=== PATIENT | male | born 1960 | race Caucasian/White ===

== ENCOUNTER → 2017-11-15 | Outpatient (CLI) | payer BC, OTHER ==
--- NOTE | 2017-11-15 13:22 | CT ---
EXAMINATION TYPE: CT abdomen pelvis wo/w con DATE OF EXAM: 11/15/2017 COMPARISON: CT abdomen and pelvis August 22, 2010 HISTORY: Left lower quadrant pain CT DLP: 3602 mGycm, Automated Exposure Control for Dose Reduction was Utilized. CONTRAST: CT scan of the abdomen and pelvis is performed with oral and without and with IV Contrast, patient in jected with 100 mL of Isovue 300. FINDINGS: LUNG BASES: No significant abnormality is appreciated. LIVER/GB: Liver is diffusely low dense consistent with fatty infiltration on noncontrast images uncha nged from prior. PANCREAS: No significant abnormality is seen. SPLEEN: No significant abnormality is seen. ADRENALS: No significant abnormality is seen. KIDNEYS: Noncontrast images show no renal calculi bilaterally. Postcontrast images show symmetric cor tical medullary uptake and excretion without evidence of concerning solid or cystic renal mass or hyd ronephrosis bilaterally. There is subcentimeter low dense lesion laterally lower pole level right kid david image 46 series 10 that is too small to further characterize per presumed benign. This is noted u nchanged from [address] CT. BOWEL: The oral contrast reaches level of the right colon. There is no suspicious small or large arun l dilatation. There is redundancy of the sigmoid colon. Normal contrast-filled appearing terminal ile um is identified. PROSTATE/SEMINAL VESICLES: No gross abnormality seen. LYMPH NODES: No greater than 1cm abdominal or pelvic lymph nodes are appreciated. OSSEOUS STRUCTURES: There is moderate multilevel spurring and disc space narrowing with vacuum disc p henomenon in the thoracic spine. There is moderate disc space narrowing and vacuum disc phenomenon tre mbosacral junction. Moderate joint space loss in both hips is present. OTHER: There is small to moderate sized fat-containing left inguinal hernia redemonstrated IMPRESSION: 1. No significant new or acute finding is seen to account for patient's clinical symptoms of left low er quadrant pain. No CT evidence for significant diverticulosis or acute diverticulitis.
== END | disposition home or self-care (01) ==
LOC: RADCTMAIN 10:56
PROVIDERS: ATTEND Family Medicine
DX: R10.32 Left lower quadrant pain (principal); E11.9 Type 2 diabetes mellitus without complications
CPT/HCPCS: 74178; Q9967

== ENCOUNTER 2020-02-23 06:25 | Day surgery (SDC) | payer BC, OTHER ==
[~2020-02-23 06:25] MED LIST: ALPRAZolam 0.25 MG TAB PO PRN; ALPRAZolam 0.5 MG TAB PO PRN; ASPIRIN 325 MG TAB PO STA; NITROGLYCERIN SL TABS 0.4 MG TAB SUBLINGUAL PRN; SODIUM CHLORIDE 0.9% 1,000 ML in EMPTY BAG 1 BAG IV ONE
[2020-02-23 07:14] LABS: Glucose,Whole Blood 159 mg/dL (75-99)
[2020-02-23] MEDS ORDERED: LIDOCAINE 1% INJ 10MG/ML (20 ML MDV) ONE (07:15)
[2020-02-23] MEDS ORDERED: VERAPAMIL 2.5 MG/ML 2 ML AMP ONE (07:15)
[2020-02-23] MEDS ORDERED: fentaNYL (PF) 50 MCG/ML 2 ML AMP ONE (07:15)
[2020-02-23] MEDS ORDERED: SODIUM CHLORIDE 0.9% 1,000 ML IV ONE (07:21)
[2020-02-23 07:34] LABS: Basophils # (A) 0.1 k/uL (0-0.2); Basophils % (A) 1 %; Eosinophils # (A) 0.5 k/uL (0-0.7); Eosinophils % (A) 5 %; HCT 41.8 % (39.0-53.0); Lymphocytes # (A) 2.4 k/uL (1.0-4.8); Lymphocytes % (A) 28 %; MCH 30.4 pg (25.0-35.0); MCHC 33.6 g/dL (31.0-37.0); MCV 90.3 fL (80.0-100.0); Mean Platelet Volume 7.3; Monocytes # (A) 0.5 k/uL (0-1.0); Monocytes % (A) 6 %; Neutrophils # (A) 5.2 k/uL (1.3-7.7); Neutrophils % (A) 59 %; Platelet Count 187 k/uL (150-450); RBC 4.62 m/uL (4.30-5.90); RDW 12.9 % (11.5-15.5); WBC 8.8 k/uL (3.8-10.6)
[2020-02-23 07:43] LABS: African American GFR (CKD) >90 (>60 ml/min/1.73 sqM); Anion Gap 7 mmol/L; Blood Urea Nitrogen 12 mg/dL (9-20); Calcium 9.1 mg/dL (8.4-10.2); Carbon Dioxide 27 mmol/L (22-30); Chloride 103 mmol/L (98-107); Glucose 162 mg/dL (74-99); Non-African American GFR(CKD) >90 (>60 ml/min/1.73 sqM); Potassium 4.7 mmol/L (3.5-5.1); Sodium 137 mmol/L (137-145)
[2020-02-23] MEDS ORDERED: fentaNYL (PF) 50 MCG/ML 2 ML AMP IVP ONE (07:55)
[2020-02-23] MEDS ORDERED: MIDAZOLAM 2 MG/2 ML VIAL IVP ONE (08:00)
[2020-02-23] MEDS ORDERED: LIDOCAINE 1% INJ 10MG/ML (20 ML MDV) SQ ONE (08:00)
[2020-02-23] MEDS ORDERED: VERAPAMIL SYRINGE (5 MG/10 ML) INTRAARTER ONE (08:03)
[2020-02-23] MEDS ORDERED: NITROGLYCERIN 1000MCG/10ML SYRINGE INTRACORON ONE (08:13)
[2020-02-23] MEDS ORDERED: CLOPIDOGREL 75 MG TAB ONE (08:18)
[2020-02-23] MEDS ORDERED: BIVALIRUDIN BOLUS 250 MG/50 ML IV ONE (08:19)
[2020-02-23] MEDS ORDERED: CLOPIDOGREL 75 MG TAB PO ONE (08:19)
[2020-02-23] MEDS ORDERED: BIVALIRUDIN 250 MG in SODIUM CHLORIDE 0.9% 50 ML IV ONE (08:20)
[2020-02-23] MEDS ORDERED: IOPAMIDOL-370 100ML BTL INJ ONE ×3 (08:20→08:47)
[2020-02-23] MEDS ORDERED: MAG HYDROX/AL HYDROX/SIMETH 30 ML CUP PO PRN (09:08)
[2020-02-23] MEDS ORDERED: RX INFO: IV CONTRAST WAS GIVEN 1 EACH MISC MISCELLANE PRN (09:08)
[2020-02-23] MEDS ORDERED: ATROPINE SULFATE 0.1 MG/ML 10ML SYRINGE IV PRN (09:08)
[2020-02-23] MEDS ORDERED: ZOLPIDEM 5 MG TAB PO PRN (09:08)
[2020-02-23] MEDS ORDERED: NITROGLYCERIN SL TABS 0.4 MG TAB SUBLINGUAL PRN (09:08)
[2020-02-23] MEDS ORDERED: ALPRAZolam 0.25 MG TAB PO PRN (09:09)
[2020-02-23] MEDS ORDERED: ALBUTEROL NEBULIZED 2.5 MG/3 ML INHALATION PRN (09:09)
[2020-02-23] MEDS ORDERED: ZOLPIDEM 10 MG TAB PO PRN (09:09)
[2020-02-23] MEDS ORDERED: SODIUM CHLORIDE 0.9% 1,000 ML IV SCH (09:15)
--- NOTE | 2020-02-23 10:25 | CC ---
CARDIAC CATHETERIZATION REPORT Mr. Montalvo is a 60-year-old male with history of hypertension, hyperlipidemia, diabetes mellitus, who has been complaining of recurrent episode of chest discomfort, exertion pattern with dyspnea. In view of that, recommendation made regarding cardiac catheterization. The procedures, risks, and complication were discussed with the patient who is in full understanding and agreement. PROCEDURE: Patient was brought to lab systems analyst in a fasting semi-sedated state after receiving fentanyl and Benadryl and achieving moderate conscious sedated state. Using Xylocaine anesthesia and Seldinger technique, a 6-[place]an sheath was introduced in the right radial artery. Selective right and left angiography were performed using 5-[place]an 3.5 bend right and left Pardeep catheter. Multiple views of the coronary artery including hemiaxial views were obtained. Following that, the aortic valve was crossed using the 6- [place] FL 3.5 guiding catheter. Following that, catheter was removed, images were reviewed. FINDINGS: FLUOROSCOPY: There was significant calcification involving the left anterior descending artery as well as the right coronary artery. LEFT MAIN: This is a large-sized vessel, bifurcating into left circumflex, left anterior descending artery. Left main coronary artery has no evidence of high-grade stenosis. LEFT ANTERIOR DESCENDING ARTERY: This is a large-sized vessel, reaching toward the apex with a wraparound apex segment, giving rise to a diagonal branch of moderate caliber proximally. Following the takeoff of the diagonal branch, there is an 80% stenosis. The LAD beyond that has diffuse intimal disease. The diagonal branch has a 60% to 70% plaque in the proximal segment. The rest of the vessel has no high-grade stenosis. LEFT CIRCUMFLEX: This is a nondominant vessel, giving rise to a large obtuse marginal branch. The left circumflex has 20% to 30% plaque in the obtuse marginal branch without any evidence of high-grade stenosis. RIGHT CORONARY ARTERY: This is a dominant vessel, moderate in caliber, bifurcating distally into PDA and posterolateral segment and branches. The right coronary artery in mid segment has a 40% plaque at the bifurcation of the PDA and PLV, has an 80% stenosis. The rest of the vessel has intimal disease without any evidence of high- grade stenosis. LEFT VENTRICULOGRAM: Left ventriculogram was not performed. HEMODYNAMICS: There was no gradient across the aortic valve. The left ventricular end-diastolic pressure was 8-10 mmHg. CONCLUSION: 1. Calcified coronary artery. 2. Significant stenosis involving the mid LAD with diffuse disease in the distal LAD. 3. Significant disease in the distal right coronary artery. 4. Mild disease in the left circumflex and moderate to significant disease in the first diagonal branch. RECOMMENDATION: In view of the finding anatomy, I recommend proceeding with angioplasty and stenting. The procedures, risks, and complication were discussed with the patient, who is in full understanding and agreement. MMODL / IJN: [id number] /
--- NOTE | 2020-02-23 10:40 | PTCA ---
PERCUTANEOUSTRANS CORORONARY ANGIOGRAPHY Mr. Montalvo is a 60-year-old male, with known history of hypertension, hyperlipidemia, diabetes mellitus, and a prior history of smoking, who has been complaining of exertional chest discomfort as well as dyspnea on exertion. He underwent cardiac catheterization, was found to have significant stenosis involving the mid LAD and distal right coronary artery. In view of that, recommendation regarding angioplasty and stenting, the procedures, risks, and complication were discussed with the patient, who is in full understanding and agreement. PROCEDURE: A 6-Khmer FL 3.5 guiding catheter introduced into the system. Following that, a 0.014 balanced medium weight J-wire was advanced across the lesion and positioned in the distal LAD. Following that, a 2.5 x 12 mm Trek balloon was advanced and one inflation 8 atmospheres was done. Following that, the balloon was removed and a 2.75 x 15 mm Xience Yadi stent was deployed, postdilated at 16 atmospheres. Following that, the balloon and the guidewire were withdrawn back in the guiding catheter. Images were obtained and repeated. Those images reveal stable successful stenting. At that point, the guiding catheter, the balloon and the guidewire were removed and a 6-Khmer FR 4 guiding catheter were introduced into the system. After cannulating the right coronary ostium, a 0.014 balanced medium weight J-wire was advanced across the lesion, positioned distally, then a 2.75 x 12 mm Xience Yadi stent was deployed, post dilated at 16 atmospheres. After the last inflation, after appropriate wait, the balloon and the guidewire were withdrawn back in the guiding catheter. Images were obtained and repeated. Those images reveal stable successful stenting. At that point, the guiding catheter, the balloon and guidewire were removed. The sheath was removed. Hemostasis was obtained with deployment of a TR band. There was no immediate complication. Patient is returned to his room in stable condition. Of note, the patient had EKG changes that resulted in the end of the procedure. He received Angiomax per protocol as well as oral loading dose of clopidogrel. RESULTS: 1. Successful stenting of the mid RCA in mid LAD with reduction of stenosis from 80% to 0%. 2. Successful stenting of the distal right coronary artery with reduction of stenosis from 80% to 0%. RECOMMENDATION: Patient will be continued on aspirin, Plavix, beta jessi, lipid, THAO and statin. The importance of dual antiplatelet treatment were discussed with the patient and his family and they are in full understanding and agreement. MMODL / IJN: [id number] /
--- NOTE | 2020-02-23 10:43 | LTR ---
DATE OF SERVICE: 02/23/2020 RE: Frederic Montalvo Dear Dr. Espinoza; I had the pleasure to perform cardiac catheterization and coronary angioplasty and stenting on Mr. Montalvo at [facility] on the February 23, 2020 and a full copy of the procedure note will be forwarded to you. In brief, he was found to have calcified coronary arteries with significant disease involving the mid LAD and distal right coronary artery. He underwent successful stenting of both vessels. I am hopeful that this procedure will stabilize his status. Thank you again for allowing me to participate in this patient's care. Please feel free to call for any questions. Sincerely yours, Rusty Hughes MD MMRENETTAL / KASHN: [id number] /
[2020-02-23 11:48] LABS: Glucose,Whole Blood 207 mg/dL (75-99)
[2020-02-23] MEDS ORDERED: glipiZIDE 5 MG TAB PO SCH (13:28)
[2020-02-23 13:31] VITALS: BMI 37.4
[2020-02-23 16:50] LABS: Glucose,Whole Blood 224 mg/dL (75-99)
[2020-02-23 20:35] LABS: Glucose,Whole Blood 185 mg/dL (75-99)
[2020-02-24 06:24] LABS: Glucose,Whole Blood 146 mg/dL (75-99)
[2020-02-24 07:04] LABS: African American GFR (CKD) >90 (>60 ml/min/1.73 sqM); Anion Gap 7 mmol/L; Blood Urea Nitrogen 11 mg/dL (9-20); Carbon Dioxide 29 mmol/L (22-30); Chloride 101 mmol/L (98-107); Glucose 130 mg/dL (74-99); Non-African American GFR(CKD) >90 (>60 ml/min/1.73 sqM); Potassium 4.7 mmol/L (3.5-5.1); Sodium 137 mmol/L (137-145)
[2020-02-24] MEDS ORDERED: glipiZIDE 5 MG TAB PO SCH ×2 (07:30→13:28)
[2020-02-24] MEDS ORDERED: lisinopriL 10 MG TAB PO SCH (09:00)
[2020-02-24] MEDS ORDERED: ATORVASTATIN 40 MG TAB PO SCH (09:00)
[2020-02-24] MEDS ORDERED: ASPIRIN 81 MG PO SCH (09:00)
[2020-02-24] MEDS ORDERED: CLOPIDOGREL 75 MG TAB PO SCH (09:00)
--- NOTE | 2020-02-24 10:30 | PN ---
PROGRESS NOTE Mr. Montalvo is a 60-year-old male with known history of hypertension, hyperlipidemia, diabetes mellitus, who presented with symptoms of chest discomfort, underwent cardiac catheterization, was found to have significant obstructive disease involving the right coronary artery and left anterior descending artery, underwent stenting of both vessels. He is doing well this morning. He denies any symptoms of chest pain, his breathing has been stable. He denies any dizziness or palpitation. He continued on aspirin once a day, Plavix 75 mg daily, Lipitor 40 mg daily, glipizide 5 mg daily, Trulicity, lisinopril 10 mg daily. PHYSICAL EXAMINATION: Blood pressure 100/50 with a heart rate in the 70s. LUNGS: Clear, regular rate and rhythm, S1, S2. No S3. No rub. ABDOMEN: Soft, nontender, obese. EXTREMITIES: No edema, right radial pulse intact. LAB DATA: Revealed BUN and creatinine 11 and 0.65, potassium 4.7. EKG shows no acute changes. IMPRESSION: 1. Status post stenting of the LAD and the right coronary artery. 2. Hypertension. 3. Hyperlipidemia. 4. Diabetes mellitus. RECOMMENDATION: Patient will be discharged home today and followed as an outpatient. MMODL / IJN: [id number] /
[2020-02-25] MEDS ORDERED: Dulaglutide [Trulicity] 1.5 MG SQ SCH (09:00)
[2020-02-26 07:49] VITALS: BP 148/70; PULSE 80; RESP 16; TEMP 98.4
== END 2020-02-24 10:48 | disposition home or self-care (01) ==
LOC: CATHCVL 06:25 → 3SCARD 09:21 → CATHCVL 02-24 10:48
PROVIDERS: ATTEND Internal Medicine Interventional Cardiology
DX: I25.110 Atherosclerotic heart disease of native coronary artery with unstable angina pectoris (principal); Z82.49 Family history of ischemic heart disease and other diseases of the circulatory system; I10 Essential (primary) hypertension; E78.00 Pure hypercholesterolemia, unspecified; E11.9 Type 2 diabetes mellitus without complications; E78.5 Hyperlipidemia, unspecified; Z79.82 Long term (current) use of aspirin; Z79.02 Long term (current) use of antithrombotics/antiplatelets; Z79.84 Long term (current) use of oral hypoglycemic drugs; Z79.899 Other long term (current) drug therapy
CPT/HCPCS: 93458; 85347; 80048 ×2; 85025; C9600; C1769 ×3; C1887 ×2; C1725; C1874; C1894; J2250; J2001; J3010; J0583; Q9967

== ENCOUNTER 2020-04-26 23:59 | Observation (INO) | payer BC ==
[2020-04-27] MEDS ORDERED: ASPIRIN 81 MG PO STA (00:09)
--- NOTE | 2020-04-27 00:10 | ED ---
Chest Pain HPI - General Chief Complaint: Chest Pain Stated Complaint: sob, chest pain Time Seen by Provider: 04/27/20 00:09 Source: patient Mode of arrival: ambulatory Limitations: no limitations - History of Present Illness Initial Comments: Frederic is in obese 60-year-old male with a history of diabetes and coronary artery disease status post stenting in February of this year. Patient presents the ER today for evaluation of chest pain. 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 He states that anytime he is working he feels some pain in his chest short of breath and fatigue. He states that this is been persistent for 3 or 4 days however tonight he was at work he developed shortness of breath, diaphoresis and lightheadedness. His coworkers saw him he became concerned for his health and requested that he come to the ER for further evaluation. Patient reports he has been compliant with his home medications including his aspirin and Plavix. - Related Data Home Medications Medication Instructions Recorded Confirmed ALPRAZolam [Xanax] 0.25 mg PO DIRECTED PRN 02/22/20 02/23/20 Albuterol Inhaler [Ventolin Hfa 2 puff INHALATION RT-QID PRN 02/22/20 02/23/20 Inhaler] Dulaglutide [Trulicity] 1.5 mg SQ TH 02/22/20 02/23/20 Lisinopril [Prinivil] 10 mg PO DAILY 02/22/20 02/23/20 Zolpidem [Ambien] 10 mg PO HS PRN 02/22/20 02/23/20 glipiZIDE [Glucotrol] 5 mg PO DAILY 02/22/20 02/23/20 metFORMIN HCL [Glucophage Xr] 1,000 mg PO DAILY 02/22/20 02/23/20 Aspirin 81 mg PO ONCE 02/23/20 02/23/20 Previous Rx's Medication Instructions Recorded Clopidogrel [Plavix] 75 mg PO DAILY #90 tab 02/24/20 Nitroglycerin Sl Tabs [Nitrostat] 0.4 mg SUBLINGUAL Q5M PRN #25 tab 02/24/20 Rosuvastatin Calcium 20 mg PO DAILY #0 02/24/20 Allergies Allergy/AdvReac Type Severity Reaction Status Date / Time No Known Allergies Allergy Verified 04/27/20 00:06 Review of Systems ROS Statement: Those systems with pertinent positive or pertinent negative responses have been documented in the HPI. ROS Other: All systems not noted in ROS Statement are negative. EKG Findings - EKG Comments: EKG Findings:: EKG was obtained due to complaint of chest pain, EKG was obtained at 12:12 AM, rate is 85, rhythm is sinus is a normal axis, there are normal intervals, DE 154, QRS 78, QTC 404 there are no acute ST elevations or depressions there is no evidence of acute ischemia or infarction Past Medical History Past Medical History: Asthma, Cancer, Diabetes Mellitus, GERD/Reflux, Hyperlipidemia, Hypertension, Osteoarthritis (OA) Additional Past Medical History / Comment(s): Hx Skin Cancer on shoulder removed a few yrs ago, History of Any Multi-Drug Resistant Organisms: None Reported Past Surgical History: Heart Catheterization With Stent, Orthopedic Surgery Additional Past Surgical History / Comment(s): Sleep apnea surgery, shoulder surgery. 1 stent to LAD and 1 stent to RCA on 02/23/2020, Past Anesthesia/Blood Transfusion Reactions: No Reported Reaction Date of Last Stent Placement:: 02/23/2020 Past Psychological History: Anxiety Smoking Status: Former smoker Past Alcohol Use History: Daily Past Drug Use History: None Reported - Past Family History Mother Family Medical History: No Reported History General Exam - General Exam Comments Initial Comments: Physical Exam GENERAL: Patient is well-developed and well-nourished. Patient is nontoxic and well-hydrated and is in no distress. Obese HENT: Normocephalic, Atraumatic. EYES: PERRL, EOMI PULMONARY: Unlabored respirations. No audible rales rhonchi or wheezing was noted. CARDIOVASCULAR: There is a regular rate and rhythm without any murmurs gallops or rubs. ABDOMEN: Soft and nontender with normal bowel sounds. SKIN: Skin is clear with no lesions or rashes and otherwise unremarkable. : Deferred NEUROLOGIC: Patient is alert and oriented x3. Moving all extremities spontaneously MUSCULOSKELETAL: Normal extremities with adequate strength and full range of motion. No lower extremity swelling or edema. No calf tenderness. PSYCHIATRIC: Normal psychiatric evaluation. Limitations: no limitations Course Vital Signs 04/27/20 04/27/20 00:01 01:46 Temperature 99.2 F Pulse Rate 87 80 Respiratory 16 16 Rate Blood Pressure 148/88 153/83 O2 Sat by Pulse 96 98 Oximetry Chest Pain MDM - MDM The patient was seen and evaluated, history is obtained from the patient Patient seems to be having stable angina every day at work however tonight was much worse he became diaphoretic Patient's initial EKG was nonischemic initial set of labs was unremarkable however given the patient's history he is high risk for acute coronary syndrome and will be admitted to the hospital for serial troponins and evaluation by cardiology Disposition Clinical Impression: Chest pain Disposition: ADMITTED IP TO THIS HOSP Condition: Stable Is patient prescribed a controlled substance at d/c from ED?: No
[2020-04-27 00:30] LABS: Basophils # (A) 0.1 k/uL (0-0.2); Basophils % (A) 1 %; Eosinophils # (A) 0.3 k/uL (0-0.7); Eosinophils % (A) 2 %; HCT 40.3 % (39.0-53.0); HGB 13.6 gm/dL (13.0-17.5); Lymphocytes # (A) 2.6 k/uL (1.0-4.8); Lymphocytes % (A) 24 %; MCHC 33.6 g/dL (31.0-37.0); MCV 92.1 fL (80.0-100.0); Mean Platelet Volume 7.1; Monocytes # (A) 0.6 k/uL (0-1.0); Monocytes % (A) 6 %; Neutrophils % (A) 66 %; Platelet Count 221 k/uL (150-450); RBC 4.38 m/uL (4.30-5.90); RDW 13.2 % (11.5-15.5); WBC 10.7 k/uL (3.8-10.6)
[2020-04-27 00:44] LABS: ALT 21 U/L (4-49); AST 20 U/L (17-59); African American GFR (CKD) >90 (>60 ml/min/1.73 sqM); Albumin 4.1 g/dL (3.5-5.0); Alkaline Phosphatase 49 U/L (38-126); Anion Gap 8 mmol/L; Blood Urea Nitrogen 17 mg/dL (9-20); Calcium 9.5 mg/dL (8.4-10.2); Carbon Dioxide 26 mmol/L (22-30); Chloride 102 mmol/L (98-107); Glucose 126 mg/dL (74-99); Magnesium 1.9 mg/dL (1.6-2.3); Non-African American GFR(CKD) >90 (>60 ml/min/1.73 sqM); Potassium 4.2 mmol/L (3.5-5.1); Sodium 136 mmol/L (137-145); Total Bilirubin 0.4 mg/dL (0.2-1.3); Total Protein 6.5 g/dL (6.3-8.2)
[2020-04-27 00:47] LABS: Partial Thromboplastin Time 22.2 sec (22.0-30.0); Prothrombin Time 9.9 sec (9.0-12.0)
--- NOTE | 2020-04-27 00:53 | XR ---
EXAMINATION TYPE: XR chest 2V DATE OF EXAM: 04/27/2020 COMPARISON: NONE HISTORY: Difficulty breathing TECHNIQUE: 2 views FINDINGS: Heart is normal. Lungs are clear of infiltrate. There is no heart failure. There are no hil ar masses. There are chest leads. Bony thorax is intact. IMPRESSION: No active cardiopulmonary disease. Normal heart.
[2020-04-27] MEDS ORDERED: NITROGLYCERIN SL TABS 0.4 MG TAB SUBLINGUAL PRN ×2 (01:24→13:44)
[2020-04-27] MEDS ORDERED: ALBUTEROL NEBULIZED 2.5 MG/3 ML INHALATION PRN (01:33)
[2020-04-27 06:31] LABS: Glucose,Whole Blood 93 mg/dL (75-99)
[2020-04-27] MEDS ORDERED: metFORMIN 500 MG TAB PO SCH (09:00)
[2020-04-27] MEDS ORDERED: glipiZIDE 5 MG TAB PO SCH (09:00)
--- NOTE | 2020-04-27 09:01 | P.HPIM ---
History of Present Illness This is a pleasant 60 years old male with coronary artery disease who was admitted couple months ago and underwent an and coronary angiography with stenting to both mid LAD and right coronary artery . Other chronic medical problems including hypertension, hyperlipidemia, GERD, diabetes mellitus, asthma. Presents because of chest pain, he had this chest pain for the last 3-4 days and he states is similar to the chest pain when he had the stent placed for him about 2 months ago, so the left side, constant, associated with sweats about 7-8/10 in severity, felt like pressure with some exertional dyspnea He denies a smoking, drinks about 2 liquor cups every day, no illicit drugs Denies depression or suicidal ideation He has mild leukocytosis of 10.7, troponin 3 are negative EKG showing normal sinus rhythm at [address]-T changes, chest x- ray: No acute process. Review of Systems CONSTITUTIONAL: No fever, no malaise, no fatigue. HEENT: No recent visual problems or hearing problems. Denied any sore throat. CARDIOVASCULAR: No orthopnea, PND, no palpitations, no syncope. PULMONARY: No shortness of breath, no cough, no hemoptysis. GASTROINTESTINAL: No diarrhea, no nausea, no vomiting, no abdominal pain. Normoactive bowel sounds. NEUROLOGICAL: No headaches, no weakness, no numbness. HEMATOLOGICAL: Denies any bleeding or petechiae. GENITOURINARY: Denies any burning micturition, frequency, or urgency. MUSCULOSKELETAL/RHEUMATOLOGICAL: Denies any joint pain, swelling, or any muscle pain. ENDOCRINE: Denies any polyuria or polydipsia. Past Medical History Past Medical History: Asthma, Cancer, Diabetes Mellitus, GERD/Reflux, Hyperlipidemia, Hypertension, Osteoarthritis (OA) Additional Past Medical History / Comment(s): Hx Skin Cancer on shoulder removed a few yrs ago, History of Any Multi-Drug Resistant Organisms: None Reported Past Surgical History: Heart Catheterization With Stent, Orthopedic Surgery Additional Past Surgical History / Comment(s): Sleep apnea surgery, shoulder surgery. 1 stent to LAD and 1 stent to RCA on 02/23/2020, Past Anesthesia/Blood Transfusion Reactions: No Reported Reaction Date of Last Stent Placement:: 02/23/2020 Past Psychological History: Anxiety Smoking Status: Former smoker Past Alcohol Use History: Daily Past Drug Use History: None Reported - Past Family History Mother Family Medical History: No Reported History Medications and Allergies Home Medications Medication Instructions Recorded Confirmed Type ALPRAZolam [Xanax] 0.25 mg PO DIRECTED PRN 02/22/20 02/23/20 History Albuterol Inhaler [Ventolin Hfa 2 puff INHALATION RT-QID PRN 02/22/20 02/23/20 History Inhaler] Dulaglutide [Trulicity] 1.5 mg SQ TH 02/22/20 02/23/20 History Lisinopril [Prinivil] 10 mg PO DAILY 02/22/20 02/23/20 History Zolpidem [Ambien] 10 mg PO HS PRN 02/22/20 02/23/20 History glipiZIDE [Glucotrol] 5 mg PO DAILY 02/22/20 02/23/20 History metFORMIN HCL [Glucophage Xr] 1,000 mg PO DAILY 02/22/20 02/23/20 History Aspirin 81 mg PO ONCE 02/23/20 02/23/20 History Clopidogrel [Plavix] 75 mg PO DAILY #90 tab 02/24/20 Rx Nitroglycerin Sl Tabs [Nitrostat] 0.4 mg SUBLINGUAL Q5M PRN #25 tab 02/24/20 Rx Rosuvastatin Calcium 20 mg PO DAILY #0 02/24/20 02/23/20 Rx Allergies Allergy/AdvReac Type Severity Reaction Status Date / Time No Known Allergies Allergy Verified 04/27/20 08:57 Physical Exam Vitals: Vital Signs Temp Pulse Pulse Resp BP BP Pulse Ox 04/27/20 02:10 98.3 F 96 18 130/82 96 04/27/20 01:46 80 16 153/83 98 04/27/20 00:01 99.2 F 87 16 148/88 96 Intake and Output 04/26/20 04/27/20 04/27/20 22:59 06:59 14:59 Intake Total 0 Balance 0 Intake: Oral 0 Other: Voiding Method Toilet # Voids 2 Weight 117.934 kg GENERAL: The patient is alert and oriented x3, not in any acute distress. Well developed, well nourished. HEENT: Pupils are round and equally reacting to light. EOMI. No scleral icterus. No conjunctival pallor. Normocephalic, atraumatic. No pharyngeal erythema. No thyromegaly. CARDIOVASCULAR: S1 and S2 present. No murmurs, rubs, or gallops. PULMONARY: Chest is clear to auscultation, no wheezing or crackles. ABDOMEN: Soft, nontender, nondistended, normoactive bowel sounds. No palpable organomegaly. MUSCULOSKELETAL: No joint swelling or deformity. EXTREMITIES: No cyanosis, clubbing, or pedal edema. NEUROLOGICAL: Gross neurological examination did not reveal any focal deficits. SKIN: No rashes. No petechiae Results CBC & Chem 7: 04/27/20 00:14 04/27/20 00:14 Labs: Abnormal Lab Results - Last 24 Hours (Table) 04/27/20 04/27/20 Range/Units 00:14 00:14 WBC 10.7 H (3.8-10.6) k/uL Sodium 136 L (137-145) mmol/L Glucose 126 H (74-99) mg/dL Assessment and Plan Assessment: Chest pain, with recent stenting of the LAD and RCA Diabetes mellitus Hypertension Hyperlipidemia Osteoarthritis Obesity with BMI of 38 Plan: This is a pleasant 60 years old male who presents with chest pain, no history of troponin, cardiology consult. Continue with aspirin and Plavix and statin. Labs and medication were reviewed.. Continue same treatment. Continue with symptomatic treatment. Resume home medication. Monitor lytes and vitals. DVT and GI prophylaxis. Further recommendations of the clinical course of the patient DVT prophylaxis: Subcutaneous heparin GI Prophylaxis: Pepcid Prognosis is guarded
[2020-04-27] MEDS ORDERED: ALPRAZolam 0.25 MG TAB PO PRN (09:18)
[2020-04-27] MEDS ORDERED: ALPRAZolam 0.5 MG TAB PO PRN (09:18)
[2020-04-27] MEDS ORDERED: SODIUM CHLORIDE 0.9% 1,000 ML in EMPTY BAG 1 BAG IV ONE (09:18)
[2020-04-27] MEDS: CLOPIDOGREL 75 MG TAB PO SCH (09:26)
[2020-04-27] MEDS: ATORVASTATIN 40 MG TAB PO SCH (09:26)
[2020-04-27] MEDS: lisinopriL 10 MG TAB PO SCH (09:26)
--- NOTE | 2020-04-27 09:34 | P.CRDCN ---
History of Present Illness History of present illness: HISTORY OF PRESENTING ILLNESS This is a pleasant 60-year-old female past medical history significant for coronary artery disease s/p PCI to the LAD and RCA in February 2020, diabetes m ellitus, hypertension and dyslipidemia. He follows in the office with Dr. Hughes. We have been asked to see in consultation for chest pain. He states for the previous 3 days he has been experiencing a discomfort described as a pressure sensation in the left precordial region. It is associated with diaphoresis and shortness of breath. His pain has been rather constant for the previous 3 days but does have episodes of exacerbation specifically when he exerts himself. He also has exacerbations when he moves his left arm and takes a deep breath at times. More specifically he becomes dyspneic with mild exertion or activity. He states these symptoms are similar to how he felt prior to his recent stent placement. After his stent placement in his chest discomfort and shortness of breath did seem to improve somewhat however his level of energy did not. He recently went back to work 3 days ago and he's noticed symptoms returning associated with work. He is currently chest pain- free however he got up to use the restroom and states he did become dyspneic. He states he has been compliant with his dual antiplatelet therapy. Cardiac catheterization from February 2020 reviewed, LAD with an 80% stenosis following the takeoff of the diagonal branch with diffuse intimal disease thereafter, diagonal branch with a 60-70% plaque in the proximal segment, circumflex with a 20-30% plaque in the OM branch, RCA with a 40% plaque in the midsegment at the bifurcation of the PDA and PLV and an 80% stenosis thereafter. After his PCI he underwent a low level treadmill exercise stress test where he achieved 81% of his maximum target heart rate. At 81% he had no ischemic EKG abnormalities or symptoms of unstable angina. Most recent echocardiogram obtained prior to PCI February 16 revealed preserved LV systolic function with ejection fraction 55%, mild concentric hypertrophy and no valvular abnormalities. DIAGNOSTICS EKG reveals sinus mechanism with no acute ST or T wave abnormalities noted. Chest xray negative for an acute cardiopulmonary process. Laboratory reviewed, WBC 10.7, hemoglobin 13.6, platelets 221, sodium 136, potassium 4.2, creatinine 0.74, magnesium 1.9, cardiac enzymes negative 3 and NT proBNP 45. Current cardiac medications include aspirin 81 mg daily, Plavix 75 mg daily, lisinopril 10 mg daily and rosuvastatin 5 mg daily. REVIEW OF SYSTEMS At the time of my exam: CONSTITUTIONAL: Denies fever or chills. CARDIOVASCULAR: Denies chest pain, shortness of breath, orthopnea, PND or palpitations. RESPIRATORY: Denies cough. GASTROINTESTINAL: Denies abdominal pain, diarrhea, constipation, nausea or vomiting. MUSCULOSKELETAL: Denies myalgias. NEUROLOGIC: Denies numbness, tingling or weakness. ENDOCRINE: Denies fatigue, weight change, polydipsia or polyurina. GENITOURINARY: Denies burning, hematuria or urgency with micturation. HEMATOLOGIC: Denies history of anemia or bleeding. PHYSICAL EXAMINATION Blood pressure 136/88 heart rate 82 afebrile and maintaining oxygen saturation on room air. CONSTITUTIONAL: No apparent distress. Obese. HEENT: Head is normocephalic. Pupils are equal, round. Sclerae anicteric. Mucous membranes of the mouth are moist. No JVD. No carotid bruit. CHEST EXAMINATION: Lungs are clear to auscultation. No chest wall tenderness is noted on palpation or with deep breathing. HEART EXAMINATION: Regular rate and rhythm. S1, S2 heard. No murmurs, gallops or rub. ABDOMEN: Soft, nontender. Positive bowel sounds. EXTREMITIES: 2+ peripheral pulses, no lower extremity edema and no calf tenderness. NEUROLOGIC EXAMINATION: Patient is awake, alert and oriented x3. ASSESSMENT Unstable angina Coronary artery disease status post recent PCI maintained on dual antiplatelet therapy Hypertension Dyslipidemia Diabetes mellitus Obesity, BMI 38 PLAN Recommend proceeding with cardiac catheterization to assess for patency of the previously placed stents. I have discussed the risks, benefits and alternative therapies for the above-mentioned procedure and for both sedation/analgesia as well as necessary blood product administration, if indicated, as they pertain to this patient. The patient has indicated understanding and acceptance of the risks and procedures discussed. Questions have been answered appropriately and he is agreeable to move forward with the above stated procedure. Further recommendations to follow based upon clinical course. Thank you kindly for this consultation. Nurse Practitioner note has been reviewed, I agree with a documented findings and plan of care. Patient was seen and examined. Past Medical History Past Medical History: Asthma, Cancer, Diabetes Mellitus, GERD/Reflux, Hyperlipidemia, Hypertension, Osteoarthritis (OA) Additional Past Medical History / Comment(s): Hx Skin Cancer on shoulder removed a few yrs ago, History of Any Multi-Drug Resistant Organisms: None Reported Past Surgical History: Heart Catheterization With Stent, Orthopedic Surgery Additional Past Surgical History / Comment(s): Sleep apnea surgery, shoulder surgery. 1 stent to LAD and 1 stent to RCA on 02/23/2020, Past Anesthesia/Blood Transfusion Reactions: No Reported Reaction Date of Last Stent Placement:: 02/23/2020 Past Psychological History: Anxiety Smoking Status: Former smoker Past Alcohol Use History: Daily Past Drug Use History: None Reported - Past Family History Mother Family Medical History: No Reported History Medications and Allergies Home Medications Medication Instructions Recorded Confirmed Type ALPRAZolam [Xanax] 0.25 mg PO BID PRN 02/22/20 04/27/20 History Albuterol Inhaler [Ventolin Hfa 2 puff INHALATION RT-QID PRN 02/22/20 04/27/20 History Inhaler] Dulaglutide [Trulicity] 1.5 mg SQ TH 02/22/20 04/27/20 History Lisinopril [Prinivil] 10 mg PO DAILY 02/22/20 04/27/20 History Zolpidem [Ambien] 10 mg PO HS PRN 02/22/20 04/27/20 History Aspirin 81 mg PO DAILY 02/23/20 04/27/20 History Clopidogrel [Plavix] 75 mg PO DAILY #90 tab 02/24/20 04/27/20 Rx Rosuvastatin Calcium [Crestor] 5 mg PO DAILY 04/27/20 04/27/20 History glipiZIDE XL [Glucotrol Xl] 5 mg PO DAILY 04/27/20 04/27/20 History metFORMIN HCL [Glucophage] 500 mg PO BID 04/27/20 04/27/20 History Allergies Allergy/AdvReac Type Severity Reaction Status Date / Time No Known Allergies Allergy Verified 04/27/20 08:57 Physical Exam Vitals: Vital Signs Temp Pulse Pulse Resp BP BP Pulse Ox 04/27/20 07:48 97.5 F L 82 16 136/88 98 04/27/20 02:10 98.3 F 96 18 130/82 96 04/27/20 01:46 80 16 153/83 98 04/27/20 00:01 99.2 F 87 16 148/88 96 Intake and Output 04/26/20 04/27/20 04/27/20 22:59 06:59 14:59 Intake Total 0 Balance 0 Intake: Oral 0 Other: Voiding Method Toilet Toilet # Voids 2 Weight 117.934 kg Results 04/27/20 00:14 04/27/20 00:14 Cardiac Enzymes 04/27/20 04/27/20 04/27/20 Range/Units 00:14 00:14 03:20 AST 20 (17-59) U/L Troponin I <0.012 <0.012 (0.000-0.034) ng/mL Coagulation 04/27/20 Range/Units 00:14 PT 9.9 (9.0-12.0) sec APTT 22.2 (22.0-30.0) sec CBC 04/27/20 Range/Units 00:14 WBC 10.7 H (3.8-10.6) k/uL RBC 4.38 (4.30-5.90) m/uL Hgb 13.6 (13.0-17.5) gm/dL Hct 40.3 (39.0-53.0) % Plt Count 221 (150-450) k/uL Comprehensive Metabolic Panel 04/27/20 Range/Units 00:14 Sodium 136 L (137-145) mmol/L Potassium 4.2 (3.5-5.1) mmol/L Chloride 102 (98-107) mmol/L Carbon Dioxide 26 (22-30) mmol/L BUN 17 (9-20) mg/dL Creatinine 0.74 (0.66-1.25) mg/dL Glucose 126 H (74-99) mg/dL Calcium 9.5 (8.4-10.2) mg/dL AST 20 (17-59) U/L ALT 21 (4-49) U/L Alkaline Phosphatase 49 (38-126) U/L Total Protein 6.5 (6.3-8.2) g/dL Albumin 4.1 (3.5-5.0) g/dL Current Medications Generic Name Dose Route Start Last Admin Trade Name Freq PRN Reason Stop Dose Admin Albuterol Sulfate 2.5 mg 04/27/20 01:33 Ventolin Nebulized INHALATION RT-QID PRN Shortness Of Breath Aspirin 325 mg 04/28/20 09:00 Aspirin PO DAILY [facility] Atorvastatin Calcium 40 mg 04/27/20 09:00 Lipitor PO DAILY [facility] Clopidogrel Bisulfate 75 mg 04/27/20 09:00 Plavix PO DAILY [facility] Glipizide 5 mg 04/27/20 09:00 Glucotrol PO DAILY [facility] Lisinopril 10 mg 04/27/20 09:00 Zestril PO DAILY [facility] Metformin HCl 1,000 mg 04/27/20 09:00 Glucophage PO DAILY [facility] Nitroglycerin 0.4 mg 04/27/20 01:24 Nitrostat SUBLINGUAL Q5M PRN Chest Pain Intake and Output 04/26/20 04/27/20 04/27/20 22:59 06:59 14:59 Intake Total 0 Balance 0 Intake: Oral 0 Other: Voiding Method Toilet Toilet # Voids 2 Weight 117.934 kg 04/27/20 00:14 04/27/20 00:14
[2020-04-27 10:54] LABS: Glucose,Whole Blood 112 mg/dL (75-99)
[2020-04-27 12:50] LABS: Cholesterol 136 mg/dL (<200); HDL Cholesterol 40 mg/dL (40-60); LDL Cholesterol,Calculated 68 mg/dL (0-99); Triglycerides 141 mg/dL (<150)
[2020-04-27] MEDS ORDERED: IV FLUID CONTINUATION 1,000 ML IV ONE (12:50)
[2020-04-27] MEDS ORDERED: fentaNYL (PF) 50 MCG/ML 2 ML AMP ONE (12:56)
[2020-04-27] MEDS ORDERED: LIDOCAINE 1% INJ 10MG/ML (20 ML MDV) ONE (12:56)
[2020-04-27] MEDS ORDERED: VERAPAMIL 2.5 MG/ML 2 ML AMP ONE (12:56)
[2020-04-27] MEDS ORDERED: fentaNYL (PF) 50 MCG/ML 2 ML AMP IVP ONE (13:00)
--- NOTE | 2020-04-27 13:01 | ECHOF ---
Referral Reason: MEASUREMENTS -------- HEIGHT: 175.3 cm WEIGHT: 117.9 kg BP: 136/88 RVIDd: 3.2 cm (< 3.3) IVSd: 1.2 cm (0.6 - 1.1) LVIDd: 4.2 cm (3.9 - 5.3) LVPWd: 1.2 cm (0.6 - 1.1) IVSs: 1.6 cm LVIDs: 2.9 cm LVPWs: 1.7 cm LA Diam: 3.5 cm (2.7 - 3.8) LAESV Index (A-L): 16.94 ml/m Ao Diam: 3.6 cm (2.0 - 3.7) AV Cusp: 2.0 cm (1.5 - 2.6) MV EXCURSION: 19.089 mm (> 18.000) MV EF SLOPE: 160 mm/s (70 - 150) EPSS: 0.6 cm MV E Ramses: 0.79 m/s MV DecT: 231 ms MV A Ramses: 0.87 m/s MV E/A Ratio: 0.91 FINDINGS -------- Sinus rhythm. This was a technically adequate study. The left ventricular size is normal. Left ventricular wall thickness is normal. Overall left vent ricular systolic function is normal with, an EF between 60 - 65 %. The right ventricle is normal in size. Normal LA size by volume 22+/-6 ml/m2. The right atrium is normal in size. Interatrial and interventricular septum intact. The aortic valve is trileaflet and appears structurally normal. There is trace mitral regurgitation. The tricuspid valve appears structurally normal. There is no pulmonic regurgitation present. The aortic root size is normal. Normal inferior vena cava with normal inspiratory collapse consistent with estimated right atrial pre ssure of 5 mmHg. There is no pericardial effusion. CONCLUSIONS -------- 1. The left ventricular size is normal. 2. Left ventricular wall thickness is normal. 3. Overall left ventricular systolic function is normal with, an EF between 60 - 65 %. 4. There is trace mitral regurgitation. 5. There is no pericardial effusion. GAS WORKER: Michelle Rubio [facility]
[2020-04-27] MEDS ORDERED: LIDOCAINE 1% INJ 10MG/ML (20 ML MDV) SQ ONE (13:02)
[2020-04-27] MEDS ORDERED: VERAPAMIL SYRINGE (5 MG/10 ML) INTRAARTER ONE (13:05)
[2020-04-27] MEDS ORDERED: HEPARIN SODIUM 1,000 UN/ML (10ML VL) ONE (13:11)
[2020-04-27] MEDS: HEPARIN SODIUM 1,000 UN/ML (10ML VL) IV ONE ×2 (13:12→13:19)
[2020-04-27] MEDS ORDERED: MIDAZOLAM 2 MG/2 ML VIAL IVP ONE (13:14)
[2020-04-27] MEDS ORDERED: NITROGLYCERIN 1000MCG/10ML SYRINGE INTRAARTER ONE (13:28)
[2020-04-27] MEDS ORDERED: IOPAMIDOL-370 125ML BTL INJ ONE (13:35)
[2020-04-27] MEDS ORDERED: RX INFO: IV CONTRAST WAS GIVEN 1 EACH MISC MISCELLANE PRN (13:44)
[2020-04-27] MEDS ORDERED: ZOLPIDEM 5 MG TAB PO PRN (13:44)
[2020-04-27] MEDS ORDERED: ATROPINE SULFATE 0.1 MG/ML 10ML SYRINGE IV PRN (13:44)
[2020-04-27] MEDS ORDERED: MAG HYDROX/AL HYDROX/SIMETH 30 ML CUP PO PRN (13:44)
[2020-04-27] MEDS ORDERED: SODIUM CHLORIDE 0.9% 1,000 ML IV SCH (13:45)
[2020-04-27 14:46] VITALS: BMI 38.4
--- NOTE | 2020-04-27 16:47 | PTCA ---
PERCUTANEOUSTRANS CORORONARY ANGIOGRAPHY Mr. Montalvo is a 60-year-old male who presented with symptoms of progressive angina pectoris, underwent cardiac catheterization, was found to have moderate to significant disease in the mid right coronary artery. In view of that, recommendation regarding angioplasty and stenting, the procedures, risks, and complication were discussed with the patient who is in full understanding and agreement. PROCEDURE: A 6-Macedonian FR4 guiding catheter introduced into the system after cannulating the right coronary ostium, a 0.014 balanced medium weight J-wire was advanced across the lesion, positioned distal RCA, subsequently 3.25 x 18 mm Xience Yadi stent was deployed, postdilated to 16 atmospheres. After the last inflation, after appropriate wait, the balloon and the guidewire were withdrawn back in the guiding catheter. Images were obtained and repeated. Those images reveal stable successful stenting. At that point, the guiding catheter, the balloon and the guidewire were removed. The left ventricular end-diastolic pressure was calculated. Following that, catheter and sheath were removed. Hemostasis was obtained with deployment of a TR band. There was no immediate complication. Patient was returned to his room in stable condition. Of note, the patient had no chest discomfort or EKG changes with the inflation. He received another 5000 units of intravenous heparin. His HCT was monitored and he was continued on clopidogrel. RESULTS: Successful stenting of the mid RCA with reduction of stenosis from 60%-70% percent to 0%. RECOMMENDATION: Patient will be continued on aspirin, Plavix and statin. The importance of dual antiplatelet platelet treatment were discussed with the patient and his family who were under fully understanding and agreement. Duration of sedation is 35 minutes. MMODL / IJN: [id number] /
--- NOTE | 2020-04-27 16:47 | CC ---
CARDIAC CATHETERIZATION REPORT Mr. Montalvo is a 60-year-old male with known history of coronary artery disease, history of hypertension, hyperlipidemia, diabetes mellitus, who underwent stenting of the LAD and the right coronary artery in early February of this year. He presented to the hospital with symptoms of exertional chest discomfort and dyspnea on exertion, increasing in frequency and intensity. In view of that, recommendation made regarding cardiac catheterization. The procedures, risks, and complication were discussed with the patient who is in full understanding and agreement. 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 Using Xylocaine anesthesia and Seldinger technique, a 6-Ivorian sheath was introduced in the right radial artery. Selective right and left coronary angiography performed using 5-Ivorian 3.5 bend right and left Pardeep catheter. Multiple views of the coronary artery including hemiaxial views were obtained. Following that, angioplasty and stenting. Following that, a 5-Ivorian tight pigtail catheter introduced into the left ventricle and left ventricular end-diastolic pressure was calculated. At the end the procedure catheter and sheath were removed. Hemostasis was obtained with deployment of a TR band. There was no immediate complication. Patient is returned to his room in stable condition. Of note, the patient received 5000 units of intravenous heparin as well as intra- arterial verapamil. FINDINGS: LEFT MAIN: This is a large-sized vessel, bifurcating into left circumflex, left anterior descending artery. Left main coronary artery has no evidence of high-grade stenosis. LEFT ANTERIOR DESCENDING ARTERY: This is a large-sized vessel, tapers down distal third. The stented segment mid vessel is patent with no evidence of in-stent restenosis. There is 20% to 30% plaque proximally, distal to the stent and in the mid and distal segment. There is diffuse intimal disease. The vessel gives rise to a diagonal branch of moderate caliber that has intimal disease. LEFT CIRCUMFLEX: This is a nondominant vessel, large in caliber, giving rise to a large obtuse marginal branch. The left circumflex has a 20% to 30% plaque without any evidence of high-grade stenosis. RIGHT CORONARY ARTERY: This is a large dominant vessel, bifurcating into PDA and posterolateral segment and branches. The stented segment in the distal right coronary artery is patent. The mid RCA has a tubular 60% plaque. The proximal RCA has a 20% to 30% plaque. The rest of the vessel has no high-grade stenosis. LEFT VENTRICULOGRAM: Left ventriculogram was not performed. HEMODYNAMICS: There was no gradient across the aortic valve. The left ventricular end- diastolic pressure was 14-18 mmHg. CONCLUSION: 1. No evidence of restenosis or thrombosis in the stent to the LAD and the right coronary artery. 2. Moderate disease in the mid right coronary artery. 3. Diffuse intimal disease in the distal LAD. RECOMMENDATION: In view of finding anatomy, I recommend proceeding with angioplasty and stenting of the RCA. The procedures, risks, and complication were discussed with the patient, who is in full understanding and agreement. MMODL / IJN: [id number] /
--- NOTE | 2020-04-27 16:53 | LTR ---
DATE OF SERVICE: 04/27/2020 RE: Frederic Montalvo Dear Dr. Espinoza; I had the pleasure to perform cardiac catheterization and coronary angioplasty and stenting on Mr. Montalvo at [facility] on April 27, 2020 and a full copy of the procedure note will be forwarded to you. In brief, he was found to have no evidence of thrombosis or restenosis at the site of the prior stenting and had moderate to significant disease in the mid RCA and underwent successful stenting of that vessel. Hopefully, this procedure will stabilize his status. Thank you again for allowing me to participate in this patient's care. Please feel free to call for any questions. Sincerely yours, Rusty Hughes MD MMRENETTAL / JONATHAN: [id number] /
[2020-04-27 17:51] LABS: Glucose,Whole Blood 186 mg/dL (75-99)
[2020-04-27 19:56] LABS: Glucose,Whole Blood 164 mg/dL (75-99)
[2020-04-27] MEDS: FAMOTIDINE 20 MG/2 ML VIAL IV SCH (19:58)
[2020-04-27] MEDS ORDERED: HEPARIN SODIUM,PORCINE 5,000 UNIT/ML 1 ML VIAL SQ SCH (21:00)
[2020-04-28 06:03] LABS: Basophils % (A) 0 %; Eosinophils # (A) 0.3 k/uL (0-0.7); Eosinophils % (A) 3 %; HCT 40.5 % (39.0-53.0); HGB 13.3 gm/dL (13.0-17.5); Lymphocytes % (A) 19 %; MCH 30.7 pg (25.0-35.0); MCHC 32.8 g/dL (31.0-37.0); MCV 93.4 fL (80.0-100.0); Mean Platelet Volume 7.1; Monocytes # (A) 0.6 k/uL (0-1.0); Monocytes % (A) 6 %; Neutrophils # (A) 7.6 k/uL (1.3-7.7); Neutrophils % (A) 72 %; Platelet Count 173 k/uL (150-450); RBC 4.34 m/uL (4.30-5.90); RDW 12.9 % (11.5-15.5); WBC 10.6 k/uL (3.8-10.6)
[2020-04-28 06:11] LABS: African American GFR (CKD) >90 (>60 ml/min/1.73 sqM); Anion Gap 6 mmol/L; Blood Urea Nitrogen 13 mg/dL (9-20); Calcium 8.8 mg/dL (8.4-10.2); Carbon Dioxide 29 mmol/L (22-30); Chloride 102 mmol/L (98-107); Glucose 127 mg/dL (74-99); Non-African American GFR(CKD) >90 (>60 ml/min/1.73 sqM); Potassium 5.2 mmol/L (3.5-5.1); Sodium 137 mmol/L (137-145)
[2020-04-28 06:48] LABS: Glucose,Whole Blood 134 mg/dL (75-99)
[2020-04-28 07:27] VITALS: BP 139/86; PULSE 77; RESP 16; TEMP 98.3
--- NOTE | 2020-04-28 08:09 | P.DS ---
Providers Date of admission: 04/27/20 01:34 Attending physician: Regina Nation Consults: 04/27/20 01:24 Consult Physician Urgent Consulting Provider: Rusty Hughes Consult Reason/Comments: established patient, chest pain Do you want consulting provider notified?: Yes, Notify in am 04/27/20 13:45 Consult Physician Routine Consulting Provider: [facility] Consult Reason/Comments: Post Interventional patient Do you want consulting provider notified?: Already Contacted Primary care physician: Alo Espinoza [place] Hospital Course: Diagnoses: Chest pain, with recent stenting of the LAD and RCA Diabetes mellitus Hypertension Hyperlipidemia Osteoarthritis Obesity with BMI of 38 Hospital course: This is a pleasant 60 years old male with coronary artery disease who was admitted couple months ago and underwent an and coronary angiography with stenting to both mid LAD and right coronary artery . Other chronic medical problems including hypertension, hyperlipidemia, GERD, diabetes mellitus, asthma. Presents because of chest pain, he had this chest pain for the last 3-4 days and he states is similar to the chest pain when he had the stent placed for him about 2 months ago, patient has been evaluated by hand turner and he underwent cardiac angiography with angioplasty and successful stenting of the mid RCA with reduction of stenosis from 60-70% down to 0%. His 2 stents placed 2 months ago and the RCA and LAD were patent. On the day of discharge patient denies chest pain, no dyspnea, no abdominal pain or nausea vomiting and is tolerating diet well. No fever Patient was cleared for discharge by hand turner Problems and management plan were discussed with the patient and he verbalized understanding and acceptance Patient was found stable and can be discharged home however he needs follow-up as an outpatient. Patient was instructed to follow up with PCP Dr. Espinoza within one week and patient agrees. Patient was instructed to follow up with his hand turner Dr. Hughes in one week and he agrees as well. Patient agrees to make his own appointment patient says that he has an appointment with his PCP tomorrow and he going to follow up with that. Gen: patient is a AAOx3, no distress CVS: S1-S2, RRR, no murmur Lungs: B/L CTA, no wheezing Abdomen: soft, no distention, no tenderness, positive bowel sounds Extremity: no leg edema or induration Time spent more than 35 minutes Patient Condition at Discharge: Stable Plan - Discharge Summary Discharge Rx Participant: Yes New Discharge Prescriptions: New Atorvastatin [Lipitor] 40 mg PO DAILY #30 tab Nitroglycerin Sl Tabs [Nitrostat] 0.4 mg SUBLINGUAL Q5M PRN #20 tab PRN Reason: Chest Pain Continue Zolpidem [Ambien] 10 mg PO HS PRN PRN Reason: Insomnia Lisinopril [Prinivil] 10 mg PO DAILY Albuterol Inhaler [Ventolin Hfa Inhaler] 2 puff INHALATION RT-QID PRN PRN Reason: Shortness Of Breath ALPRAZolam [Xanax] 0.25 mg PO BID PRN PRN Reason: Anxiety Dulaglutide [Trulicity] 1.5 mg SQ TH Aspirin 81 mg PO DAILY Clopidogrel [Plavix] 75 mg PO DAILY #90 tab Rosuvastatin Calcium [Crestor] 5 mg PO DAILY metFORMIN HCL [Glucophage] 500 mg PO BID glipiZIDE XL [Glucotrol XL] 5 mg PO DAILY Discharge Medication List ALPRAZolam [Xanax] 0.25 mg PO BID PRN 02/22/20 [History] Albuterol Inhaler [Ventolin Hfa Inhaler] 2 puff INHALATION RT-QID PRN 02/22/20 [History] Dulaglutide [Trulicity] 1.5 mg SQ TH 02/22/20 [History] Lisinopril [Prinivil] 10 mg PO DAILY 02/22/20 [History] Zolpidem [Ambien] 10 mg PO HS PRN 02/22/20 [History] Aspirin 81 mg PO DAILY 02/23/20 [History] Clopidogrel [Plavix] 75 mg PO DAILY #90 tab 02/24/20 [Rx] Rosuvastatin Calcium [Crestor] 5 mg PO DAILY 04/27/20 [History] glipiZIDE XL [Glucotrol XL] 5 mg PO DAILY 04/27/20 [History] metFORMIN HCL [Glucophage] 500 mg PO BID 04/27/20 [History] Atorvastatin [Lipitor] 40 mg PO DAILY #30 tab 04/28/20 [Rx] Nitroglycerin Sl Tabs [Nitrostat] 0.4 mg SUBLINGUAL Q5M PRN #20 tab 04/28/20 [Rx] Follow up Appointment(s)/Referral(s): Rusty Hughes MD [STAFF PHYSICIAN] - 1 Week Alo Espinoza DO [Primary Care Provider] - 1-2 days Activity/Diet/Wound Care/Special Instructions: Heart healthy diet Activity is limited till see your doctor Discharge Disposition: HOME SELF-CARE
[2020-04-28] MEDS: CLOPIDOGREL 75 MG TAB PO SCH (08:34)
[2020-04-28] MEDS: FAMOTIDINE 20 MG/2 ML VIAL IV SCH (08:34)
[2020-04-28] MEDS: lisinopriL 10 MG TAB PO SCH (08:34)
[2020-04-28] MEDS: ATORVASTATIN 40 MG TAB PO SCH (08:34)
[2020-04-28] MEDS ORDERED: ASPIRIN 325 MG TAB PO SCH (09:00)
[2020-04-28] MEDS ORDERED: ASPIRIN 81 MG PO SCH (09:00)
--- NOTE | 2020-04-28 09:15 | P.PN ---
Subjective HISTORY OF PRESENTING ILLNESS This is a pleasant 60-year-old female past medical history significant for coronary artery disease s/p PCI to the LAD and RCA in February 2020, diabetes mellitus, hypertension and dyslipidemia. He follows in the office with Dr. Hughes. He underwent cardiac catheterization yesterday with Dr. Hughes revealing patent stents in the LAD and RCA with an area of moderate disease in the mid RCA and diffuse intimal disease in the distal LAD. He underwent successful PCI of the mid RCA. He is seen and examined sitting up in bed in no acute distress. He has no further symptoms of chest discomfort or shortness of breath. EKG obtained this morning reveal sinus mechanism with no ischemic changes. Blood pressure 139/86 heart rate 77 afebrile maintaining oxygen saturation on room air. Laboratory data reviewed, CBC unremarkable, sodium 137, potassium 5.2 and creatinine 0.81. PHYSICAL EXAMINATION CONSTITUTIONAL: No apparent distress. Obese. HEENT: Head is normocephalic. Pupils are equal, round. Sclerae anicteric. Mucous membranes of the mouth are moist. No JVD. No carotid bruit. CHEST EXAMINATION: Lungs are clear to auscultation. No chest wall tenderness is noted on palpation or with deep breathing. HEART EXAMINATION: Regular rate and rhythm. S1, S2 heard. No murmurs, gallops or rub. EXTREMITIES: 2+ peripheral pulses, no lower extremity edema and no calf tenderness. Right radial access site clean, dry and intact with no evidence of hematoma, bruising, ecchymosis or bleeding. ASSESSMENT Unstable angina Coronary artery disease status post recent PCI maintained on dual antiplatelet therapy Hypertension Dyslipidemia Diabetes mellitus Obesity, BMI 38 PLAN Stable for discharge from a cardiac perspective. Follow-up in the office with Dr. Hughes in one week. Nurse Practitioner note has been reviewed, I agree with a documented findings and plan of care. Patient was seen and examined. Objective - Vital Signs Vital signs: Vital Signs Temp 98.3 F 04/28/20 07:24 Pulse 77 04/28/20 07:24 Resp 16 04/28/20 07:24 BP 139/86 04/28/20 07:24 Pulse Ox 97 04/28/20 07:24 Intake & Output 04/27/20 04/28/20 04/28/20 18:59 06:59 18:59 Intake Total 905 900 Balance 905 900 Weight 117.934 kg Intake: IV 75 Intake, IV Titration 590 Amount Sodium Chloride 0.9% 1, 590 000 ml In Empty Bag 1 bag @ 1 ML/KG/HR 117.934 mls /hr IV .[id number] ONE Rx#: [id number] Oral 900 Blood Product 240 Other: Voiding Method Toilet Toilet # Voids 3 - Labs CBC & Chem 7: 04/28/20 04:56 04/28/20 04:56 Labs: Abnormal Lab Results - Last 24 Hours (Table) 04/27/20 04/27/20 04/27/20 Range/Units 10:53 17:49 19:55 Potassium (3.5-5.1) mmol/L Glucose (74-99) mg/dL POC Glucose (mg/dL) 112 H 186 H 164 H (75-99) mg/dL 04/28/20 04/28/20 Range/Units 04:56 06:47 Potassium 5.2 H (3.5-5.1) mmol/L Glucose 127 H (74-99) mg/dL POC Glucose (mg/dL) 134 H (75-99) mg/dL
== END 2020-04-28 09:28 | disposition home or self-care (01) ==
LOC: EC 23:59 → 3NCARDOBS 04-27 01:34
PROVIDERS: ADMIT Hospitalist; ATTEND Hospitalist
DX: I25.110 Atherosclerotic heart disease of native coronary artery with unstable angina pectoris (principal); E11.9 Type 2 diabetes mellitus without complications; E66.9 Obesity, unspecified; E78.5 Hyperlipidemia, unspecified; F41.9 Anxiety disorder, unspecified; I10 Essential (primary) hypertension; I25.2 Old myocardial infarction; J45.909 Unspecified asthma, uncomplicated; M19.90 Unspecified osteoarthritis, unspecified site; Z68.38 Body mass index [BMI] 38.0-38.9, adult; Z79.02 Long term (current) use of antithrombotics/antiplatelets; Z79.82 Long term (current) use of aspirin; Z79.84 Long term (current) use of oral hypoglycemic drugs; Z79.899 Other long term (current) drug therapy; Z85.828 Personal history of other malignant neoplasm of skin; Z87.891 Personal history of nicotine dependence
CPT/HCPCS: 93005 ×2; 99285; 36415; 93306; 93458; 85347; 83880; 80061; 80053; 80048; 83735; 84484; 85025 ×2; 85610; 85730; 84145; 71046; G0378 ×2; C9600; C1769 ×3; C1887; C1874; C1894; J2250; J2001; J3010; J1644; Q9967

== ENCOUNTER 2021-02-16 09:23 | Day surgery (SDC) | payer BC ==
[2021-02-14 12:17] VITALS: BMI 38.4
[~2021-02-16 09:23] MED LIST changes: -ALPRAZolam 0.25 MG TAB PO PRN; -ALPRAZolam 0.5 MG TAB PO PRN; -ASPIRIN 325 MG TAB PO STA; +LACTATED RINGERS 1,000 ML IV SCH; -NITROGLYCERIN SL TABS 0.4 MG TAB SUBLINGUAL PRN; -SODIUM CHLORIDE 0.9% 1,000 ML in EMPTY BAG 1 BAG IV ONE
[2021-02-16 09:42] VITALS: TEMP 97.7
[2021-02-16 09:46] LABS: Glucose,Whole Blood 113 mg/dL (75-99)
[2021-02-16] MEDS ORDERED: methylPREDNISolone ACETATE 40 MG/ML 1 ML VIAL ONE (09:49)
[2021-02-16] MEDS ORDERED: ROPIVACAINE 5MG/ML 20ML VIAL ONE (09:49)
--- NOTE | 2021-02-16 10:04 | P.PCN ---
Date of Procedure: 02/16/21 Procedure(s) Performed: Procedure= trigger point injections (right trapezius muscles injection total of 5 trigger point injected ) Preoperative diagnosis= 1-myofascial pain syndrome cervical area 2-cervical spondylosis Postoperative diagnosis=Same as preop Diagnosis . Complication = none Condition= stable Anesthesia=none Indication for the procedure= patient complaining of sever neck back pain , examination was positive for severe tenderness over the trapezius muscle bilaterally, for this reason he was good candidate for trigger point injections. Description of the procedure= procedure risk and benefits discussed with the patient, including but not limited, risk of infection and bleeding, and ALLERGIC reaction to the medication and not complete pain relief and patient agreed with the preceding patient taken to the operating room, placed in sitting position or standard monitors applied to the patient then after induction of anesthesia back prepped with chlorhexidine 3 times , and under sterile technique total of 5 trigger point identified in the right side trapezius muscle, then increasing 25- gauge needle total of 10 ML of ropivacaine 0.5% mixed with 40 mg of Depo-Medrol and 2 mL of the mixture injected at each trigger point after negative aspiration, and there was no paresthesia during the injection patient tolerated the procedure well without any complications. (note = in the preop holding area patient reported that he had pain on both sides of his neck, and exam was positive for multiple trigger point , right trapezius muscles and on the left trapezius muscle for this reason,next Visit we will schedule patient for bilateral trapezius muscles injections hopefully this will be more beneficial to the patient.
[2021-02-16 10:19] VITALS: BP 106/60; PULSE 82; RESP 18
== END 2021-02-16 10:29 | disposition home or self-care (01) ==
LOC: ORPAIN 09:23
PROVIDERS: ATTEND Specialist
DX: M79.18 Myalgia, other site (principal); M47.812 Spondylosis without myelopathy or radiculopathy, cervical region; E11.9 Type 2 diabetes mellitus without complications; Z79.02 Long term (current) use of antithrombotics/antiplatelets
CPT/HCPCS: 20552; J1030; J2795; 20553

== ENCOUNTER → 2021-03-13 | Outpatient (CLI) | payer BC ==
[2021-03-13 09:25] VITALS: BP 144/78; PULSE 90; RESP 18; TEMP 98.2
--- NOTE | 2021-03-13 09:34 | P.PN ---
Subjective Progress Note Date: 03/13/21 This is a 61-year-old gentleman with history of axial neck pain which gets worse by cervical rotation and also this pain radiates down both the trapezius muscles .the patient had trigger point injection in the right trapezius muscle which gave him short-lived pain relief .the patient has history of coronary artery disease was stent placement in April of last year and treatment with Plavix. Patient denies new-onset weakness, bowel/bladder incontinence, or any other signs or symptoms of cauda equina syndrome. There are no signs of acute intoxication, and no indications of medication diversion or overuse. In addition to above, 13-point review of systems is also negative for chest pain, shortness of breath, changes in vision, changes in hearing, new onset weakness, abdominal pain, diarrhea, extreme fatigue, malaise, fever, skin changes, homicidal or suicidal ideation, or bowel or bladder incontinence. Vital Signs: Reviewed in EMR Gen: AAOx3, NAD HEENT: PERRLA,hearing grossly normal Pulm: resp unlabored Neck: supple, trachea midline Neuro exam of the upper extremities: Normal bilaterally Straight leg raising test: Herman's test: Range of motion of the cervical spine: Mildly decreased due to pain Facet loading test: Positive in the cervical area Tenderness in the paravertebral musculature: Positive the cervical paravertebral musculature and in the trapezius muscles bilaterally Neuro: CN II-XII grossly intact, Imaging: Reviewed in EMR/chart Assessment: Cervical spondylosis without myelopathy Cervical DDD Myofascial pain in the cervical and shoulder area bilaterally Treatment with Plavix less than 1 year after coronary stent placement Plan: 1. Explanation: Opioid and psychological risk scores were reviewed. Diagnoses, prognoses, and multiple treatment options including but not limited to physical therapy, interventional therapies, adjuvant medical therapies, narcotic medication therapies, and surgery were discussed with the patient and all questions were answered to the patient's satisfaction. 2. Opioid agreement: Signed with the patient and the patient is warned not to use opioids while driving or before driving and not to combine opioids with benzodiazepines or alcohol. 3. Counseling: The patient was counseled extensively on SMOKING CESSATION, BODY MASS INDEX, EXERCISE. Specifically, the patient was instructed regarding the importance of smoking cessation, obesity, and exercise in the context of both chronic pain and overall health. 4. Procedures: We will repeat the trigger point injection on the trapezius muscles and cervical paravertebral musculature bilaterally. The patient most likely will need a diagnostic cervical medial branch block in the future however would have to wait until 1 year past treatment with Plavix after the last coronary stent placement confirmed we can try that. The patient may benefit from getting cervical MRI in the future if his pain continues with no improvement especially that starts to cause any weakness in the upper or lower extremities or any paresthesia in the extremities. 5. Consultations: None 6. Investigations: None 7. Medications: The patient is to continue using [id number] medication for his pain 8. Disposition: Return to clinic for trigger point injection and in April for follow-up. 9. Maps were reviewed and were appropriate. Objective - Vital Signs Vital signs: Vital Signs Temp 98.2 F 03/13/21 09:13 Pulse 90 03/13/21 09:13 Resp 18 03/13/21 09:13 BP 144/78 03/13/21 09:13 Pulse Ox 98 03/13/21 09:13
== END | disposition home or self-care (01) ==
LOC: PNWHC3 09:07
PROVIDERS: ATTEND Anesthesiology
DX: M47.812 Spondylosis without myelopathy or radiculopathy, cervical region (principal); M50.30 Other cervical disc degeneration, unspecified cervical region; Z79.02 Long term (current) use of antithrombotics/antiplatelets; Z95.5 Presence of coronary angioplasty implant and graft
CPT/HCPCS: 99211

== ENCOUNTER 2021-04-04 15:31 | Emergency (ER) | payer BC ==
[2021-04-04 15:51] VITALS: TEMP 98.3
[2021-04-04 16:22] VITALS: RESP 18
[2021-04-04] MEDS ORDERED: ASPIRIN 81 MG PO STA (16:22)
[2021-04-04 16:46] LABS: Basophils % (A) 0 %; Eosinophils # (A) 0.4 k/uL (0-0.7); Eosinophils % (A) 4 %; HCT 42.8 % (39.0-53.0); HGB 14.8 gm/dL (13.0-17.5); Lymphocytes # (A) 2.2 k/uL (1.0-4.8); Lymphocytes % (A) 21 %; MCH 31.7 pg (25.0-35.0); MCHC 34.6 g/dL (31.0-37.0); MCV 91.9 fL (80.0-100.0); Mean Platelet Volume 7.5; Monocytes # (A) 0.5 k/uL (0-1.0); Monocytes % (A) 5 %; Neutrophils # (A) 7.2 k/uL (1.3-7.7); Neutrophils % (A) 69 %; Platelet Count 217 k/uL (150-450); RBC 4.66 m/uL (4.30-5.90); RDW 13.9 % (11.5-15.5); WBC 10.5 k/uL (3.8-10.6)
[2021-04-04 16:57] LABS: ALT 28 U/L (4-49); AST 32 U/L (17-59); African American GFR (CKD) >90 (>60 ml/min/1.73 sqM); Albumin 4.2 g/dL (3.5-5.0); Alkaline Phosphatase 71 U/L (38-126); Anion Gap 11 mmol/L; Blood Urea Nitrogen 11 mg/dL (9-20); Calcium 9.6 mg/dL (8.4-10.2); Carbon Dioxide 23 mmol/L (22-30); Chloride 102 mmol/L (98-107); Glucose 173 mg/dL (74-99); Magnesium 1.6 mg/dL (1.6-2.3); Non-African American GFR(CKD) >90 (>60 ml/min/1.73 sqM); Potassium 4.3 mmol/L (3.5-5.1); Sodium 136 mmol/L (137-145); Total Bilirubin 0.4 mg/dL (0.2-1.3); Total Protein 6.7 g/dL (6.3-8.2)
[2021-04-04 17:08] LABS: INR 0.9 (<1.2); Partial Thromboplastin Time 22.1 sec (22.0-30.0)
--- NOTE | 2021-04-04 17:32 | XR ---
EXAMINATION TYPE: XR chest 2V DATE OF EXAM: 04/04/2021 COMPARISON: 04/27/2020 HISTORY: Difficulty breathing TECHNIQUE: 2 views FINDINGS: Heart and mediastinum are normal. Lungs are clear. Diaphragm is normal. Bony thorax is inta ct. IMPRESSION: Normal chest. No change.
--- NOTE | 2021-04-04 18:40 | ED ---
Medical Decision Making - Medical Decision Making HPI: Patient is a 61-year-old male with past medical history remarkable for anxiety, asthma, hypertension, prior heart catheterization, cardiac cath with stent in 2020 who presents emergency Department complaining of a 2 day history of intermittent strains chest palpitations. States he currently is not experiencing them. States he has been having increased stress at work. States that his emesis palpitations the last 2 days. Denies any shortness of breath, abdominal pain, nausea, vomiting. Denies any lightheadedness, weakness, numbness. His no other acute complaint at this time. States that he feels that over the left side of his chest. With his cardiac history, he presents today with concern for his heart. Review of Systems: CONST: Denies fever EYES: Denies blurry vision ENT: Denies nasal congestion C/V: Endorses palpitations RESP: Denies shortness of breath GI: Denies abdominal pain : Denies dysuria SKIN: Denies rash. MSK: Denies joint pain. NEURO: Denies headache Exam: General: Appears in no acute distress. HEAD: Normal with no signs of head trauma. EYES: PERRLA, EOMI, conjunctiva normal, no discharge. ENT: Hearing grossly intact, normal oropharynx. RESPIRATORY: Clear breath sounds bilaterally. No wheezes, rales, or rhonchi. C/V: Regular rate and rhythm. S1 and S2 auscultated, no edema, peripheral pulses 2+ and intact throughout ABD: Abd is soft, nontender, nondistended EXT: Normal range of motion, no obvious deformity SKIN: No rashes or lesions observed on exposed skin. NEURO: Alert and oriented x 4. Cranial nerves II-XII intact. No focal sensory or strength deficits. MDM: Based on the patient's presentation and physical exam, I'm concerned for possible cardiac etiology for his current symptoms. Particularly with his history. Therefore cardiac workup will be obtained. He'll be given a dose of aspirin. EKG, troponin, basic blood work, chest x-ray will be obtained. Is currently a symptomatically at this time but will be connected to continuous cardiac monitoring while is here in the department. Patient was in agreement this plan. Patient's EKG shows no signs of acute ischemia. Chest x-ray shows no acute cardiopulmonary process. Patient's laboratory studies are all unremarkable. This includes a negative troponin. On reevaluation, patient remains asym ptomatic. I discussed with him the results of his labs and imaging. Patient's heart score is low at 2. I do believe is safe for him to be discharged home. He was in agreement with this plan. Patient is a cardiology appointment next week. Advised him to follow up with his graphic specialist as well as his PCP. I instructed the patient to follow up with their PCP in the next 3 days. I explained that the patient should return to the emergency department if they experience any worsening symptoms. Strict return precautions were discussed with the patient. The patient expressed understanding of these instructions. I answered all questions that the patient had. The patient was discharged home in good condition with their prescriptions and follow up information. - Lab Data Result diagrams: 04/04/21 16:33 04/04/21 16:33 Lab Results 04/04/21 04/04/21 04/04/21 Range/Units 16:33 16:33 16:33 WBC 10.5 (3.8-10.6) k/uL RBC 4.66 (4.30-5.90) m/uL Hgb 14.8 (13.0-17.5) gm/dL Hct 42.8 (39.0-53.0) % MCV 91.9 (80.0-100.0) fL MCH 31.7 (25.0-35.0) pg MCHC 34.6 (31.0-37.0) g/dL RDW 13.9 (11.5-15.5) % Plt Count 217 (150-450) k/uL MPV 7.5 Neutrophils % 69 % Lymphocytes % 21 % Monocytes % 5 % Eosinophils % 4 % Basophils % 0 % Neutrophils # 7.2 (1.3-7.7) k/uL Lymphocytes # 2.2 (1.0-4.8) k/uL Monocytes # 0.5 (0-1.0) k/uL Eosinophils # 0.4 (0-0.7) k/uL Basophils # 0.0 (0-0.2) k/uL PT 10.0 (9.0-12.0) sec INR 0.9 (<1.2) APTT 22.1 (22.0-30.0) sec Sodium 136 L (137-145) mmol/L Potassium 4.3 (3.5-5.1) mmol/L Chloride 102 (98-107) mmol/L Carbon Dioxide 23 (22-30) mmol/L Anion Gap 11 mmol/L BUN 11 (9-20) mg/dL Creatinine 0.81 (0.66-1.25) mg/dL Est GFR (CKD-EPI)AfAm >90 (>60 ml/min/1.73 sqM) Est GFR (CKD-EPI)NonAf >90 (>60 ml/min/1.73 sqM) Glucose 173 H (74-99) mg/dL Calcium 9.6 (8.4-10.2) mg/dL Magnesium 1.6 (1.6-2.3) mg/dL Total Bilirubin 0.4 (0.2-1.3) mg/dL AST 32 (17-59) U/L ALT 28 (4-49) U/L Alkaline Phosphatase 71 (38-126) U/L Troponin I (0.000-0.034) ng/mL Total Protein 6.7 (6.3-8.2) g/dL Albumin 4.2 (3.5-5.0) g/dL 04/04/21 Range/Units 16:33 WBC (3.8-10.6) k/uL RBC (4.30-5.90) m/uL Hgb (13.0-17.5) gm/dL Hct (39.0-53.0) % MCV (80.0-100.0) fL MCH (25.0-35.0) pg MCHC (31.0-37.0) g/dL RDW (11.5-15.5) % Plt Count (150-450) k/uL MPV Neutrophils % % Lymphocytes % % Monocytes % % Eosinophils % % Basophils % % Neutrophils # (1.3-7.7) k/uL Lymphocytes # (1.0-4.8) k/uL Monocytes # (0-1.0) k/uL Eosinophils # (0-0.7) k/uL Basophils # (0-0.2) k/uL PT (9.0-12.0) sec INR (<1.2) APTT (22.0-30.0) sec Sodium (137-145) mmol/L Potassium (3.5-5.1) mmol/L Chloride (98-107) mmol/L Carbon Dioxide (22-30) mmol/L Anion Gap mmol/L BUN (9-20) mg/dL Creatinine (0.66-1.25) mg/dL Est GFR (CKD-EPI)AfAm (>60 ml/min/1.73 sqM) Est GFR (CKD-EPI)NonAf (>60 ml/min/1.73 sqM) Glucose (74-99) mg/dL Calcium (8.4-10.2) mg/dL Magnesium (1.6-2.3) mg/dL Total Bilirubin (0.2-1.3) mg/dL AST (17-59) U/L ALT (4-49) U/L Alkaline Phosphatase (38-126) U/L Troponin I <0.012 (0.000-0.034) ng/mL Total Protein (6.3-8.2) g/dL Albumin (3.5-5.0) g/dL - EKG Data -: EKG Interpreted by Me EKG Comments: 12-lead Electrocardiogram Interpretation Note EKG was reviewed and interpreted by myself. 12-lead ECG performed at 1556 is interpreted by me as revealing normal sinus rhythm at a rate of 99 beats per minute. [place] is normal. PA interval is 140 ms, QRS duration is 80 ms, QTc is 433 ms.. There were no ST or T wave abnormalities to suggest myocardial is chemia or injury. R wave progression across the precordium was satisfactory. By my interpretation this EKG is non-diagnostic for acute ischemia. Disposition Clinical Impression: Palpitations Disposition: HOME SELF-CARE Condition: Good Instructions (If sedation given, give patient instructions): Chest Pain (ED) Is patient prescribed a controlled substance at d/c from ED?: No Referrals: Alo Espinoza DO [Primary Care Provider] - 1-2 days
--- NOTE | 2021-04-04 18:40 | ED ---
General Adult HPI - General Chief complaint: Chest Pain Stated complaint: dizziness, felt flutters in his chest Time Seen by Provider: 04/04/21 16:04 Source: patient Mode of arrival: wheelchair Limitations: no limitations - Related Data Home Medications Medication Instructions Recorded Confirmed ALPRAZolam [Xanax] 0.25 mg PO BID PRN 02/22/20 03/13/21 Albuterol Inhaler [Ventolin Hfa 2 puff INHALATION RT-QID PRN 02/22/20 03/13/21 Inhaler] Dulaglutide [Trulicity] 1.5 mg SQ TH 02/22/20 03/13/21 Lisinopril [Prinivil] 10 mg PO DAILY 02/22/20 03/13/21 Zolpidem [Ambien] 10 mg PO HS PRN 02/22/20 03/13/21 Aspirin 81 mg PO DAILY 02/23/20 03/13/21 Rosuvastatin Calcium [Crestor] 5 mg PO DAILY 04/27/20 03/13/21 glipiZIDE XL [Glucotrol XL] 5 mg PO DAILY 04/27/20 03/13/21 metFORMIN HCL [Glucophage] 500 mg PO DAILY 04/27/20 03/13/21 Previous Rx's Medication Instructions Recorded Clopidogrel [Plavix] 75 mg PO DAILY #90 tab 02/24/20 Atorvastatin [Lipitor] 40 mg PO DAILY #30 tab 04/28/20 Nitroglycerin Sl Tabs [Nitrostat] 0.4 mg SUBLINGUAL Q5M PRN #20 tab 04/28/20 Allergies Allergy/AdvReac Type Severity Reaction Status Date / Time No Known Allergies Allergy Verified 04/04/21 15:51 Review of Systems ROS Statement: Those systems with pertinent positive or pertinent negative responses have been documented in the HPI. ROS Other: All systems not noted in ROS Statement are negative. Past Medical History Past Medical History: Asthma, Cancer, Diabetes Mellitus, GERD/Reflux, Hyperlipidemia, Hypertension, Osteoarthritis (OA) Additional Past Medical History / Comment(s): Hx Skin Cancer on shoulder History of Any Multi-Drug Resistant Organisms: None Reported Past Surgical History: Heart Catheterization With Stent, Orthopedic Surgery Additional Past Surgical History / Comment(s): Sleep apnea surgery, right shoulder surgery. 1 stent to LAD and 1 stent to RCA on 02/23/2020, Past Anesthesia/Blood Transfusion Reactions: No Reported Reaction Date of Last Stent Placement:: 02/23/2020 Past Psychological History: Anxiety Smoking Status: Former smoker Past Alcohol Use History: None Reported Past Drug Use History: None Reported - Past Family History Mother Family Medical History: No Reported History General Exam Limitations: no limitations Course Vital Signs 04/04/21 04/04/21 15:47 16:22 Temperature 98.3 F Pulse Rate 99 Respiratory 20 18 Rate Blood Pressure 150/61 O2 Sat by Pulse 96 Oximetry Medical Decision Making - Lab Data Result diagrams: 04/04/21 16:33 04/04/21 16:33 Lab Results 04/04/21 04/04/21 04/04/21 Range/Units 16:33 16:33 16:33 WBC 10.5 (3.8-10.6) k/uL RBC 4.66 (4.30-5.90) m/uL Hgb 14.8 (13.0-17.5) gm/dL Hct 42.8 (39.0-53.0) % MCV 91.9 (80.0-100.0) fL MCH 31.7 (25.0-35.0) pg MCHC 34.6 (31.0-37.0) g/dL RDW 13.9 (11.5-15.5) % Plt Count 217 (150-450) k/uL MPV 7.5 Neutrophils % 69 % Lymphocytes % 21 % Monocytes % 5 % Eosinophils % 4 % Basophils % 0 % Neutrophils # 7.2 (1.3-7.7) k/uL Lymphocytes # 2.2 (1.0-4.8) k/uL Monocytes # 0.5 (0-1.0) k/uL Eosinophils # 0.4 (0-0.7) k/uL Basophils # 0.0 (0-0.2) k/uL PT 10.0 (9.0-12.0) sec INR 0.9 (<1.2) APTT 22.1 (22.0-30.0) sec Sodium 136 L (137-145) mmol/L Potassium 4.3 (3.5-5.1) mmol/L Chloride 102 (98-107) mmol/L Carbon Dioxide 23 (22-30) mmol/L Anion Gap 11 mmol/L BUN 11 (9-20) mg/dL Creatinine 0.81 (0.66-1.25) mg/dL Est GFR (CKD-EPI)AfAm >90 (>60 ml/min/1.73 sqM) Est GFR (CKD-EPI)NonAf >90 (>60 ml/min/1.73 sqM) Glucose 173 H (74-99) mg/dL Calcium 9.6 (8.4-10.2) mg/dL Magnesium 1.6 (1.6-2.3) mg/dL Total Bilirubin 0.4 (0.2-1.3) mg/dL AST 32 (17-59) U/L ALT 28 (4-49) U/L Alkaline Phosphatase 71 (38-126) U/L Troponin I (0.000-0.034) ng/mL Total Protein 6.7 (6.3-8.2) g/dL Albumin 4.2 (3.5-5.0) g/dL 04/04/21 Range/Units 16:33 WBC (3.8-10.6) k/uL RBC (4.30-5.90) m/uL Hgb (13.0-17.5) gm/dL Hct (39.0-53.0) % MCV (80.0-100.0) fL MCH (25.0-35.0) pg MCHC (31.0-37.0) g/dL RDW (11.5-15.5) % Plt Count (150-450) k/uL MPV Neutrophils % % Lymphocytes % % Monocytes % % Eosinophils % % Basophils % % Neutrophils # (1.3-7.7) k/uL Lymphocytes # (1.0-4.8) k/uL Monocytes # (0-1.0) k/uL Eosinophils # (0-0.7) k/uL Basophils # (0-0.2) k/uL PT (9.0-12.0) sec INR (<1.2) APTT (22.0-30.0) sec Sodium (137-145) mmol/L Potassium (3.5-5.1) mmol/L Chloride (98-107) mmol/L Carbon Dioxide (22-30) mmol/L Anion Gap mmol/L BUN (9-20) mg/dL Creatinine (0.66-1.25) mg/dL Est GFR (CKD-EPI)AfAm (>60 ml/min/1.73 sqM) Est GFR (CKD-EPI)NonAf (>60 ml/min/1.73 sqM) Glucose (74-99) mg/dL Calcium (8.4-10.2) mg/dL Magnesium (1.6-2.3) mg/dL Total Bilirubin (0.2-1.3) mg/dL AST (17-59) U/L ALT (4-49) U/L Alkaline Phosphatase (38-126) U/L Troponin I <0.012 (0.000-0.034) ng/mL Total Protein (6.3-8.2) g/dL Albumin (3.5-5.0) g/dL Disposition Clinical Impression: Palpitations Disposition: HOME SELF-CARE Condition: Good Instructions (If sedation given, give patient instructions): Chest Pain (ED) Is patient prescribed a controlled substance at d/c from ED?: No Referrals: Alo Espinoza DO [Primary Care Provider] - 1-2 days
[2021-04-04 19:27] VITALS: BP 126/86; PULSE 88
== END 2021-04-04 19:27 | disposition home or self-care (01) ==
LOC: EC 15:31
DX: R00.2 Palpitations (principal); R07.89 Other chest pain; J45.909 Unspecified asthma, uncomplicated; E11.9 Type 2 diabetes mellitus without complications; E78.5 Hyperlipidemia, unspecified; I10 Essential (primary) hypertension; M19.90 Unspecified osteoarthritis, unspecified site; Z87.891 Personal history of nicotine dependence; Z79.899 Other long term (current) drug therapy; Z79.82 Long term (current) use of aspirin; Z79.84 Long term (current) use of oral hypoglycemic drugs
CPT/HCPCS: 36415; 71046; 80053; 83735; 84484; 85025; 85610; 85730; 93005; 99285

== ENCOUNTER 2021-04-11 09:43 | Day surgery (SDC) | payer BC ==
[2021-04-11 10:11] VITALS: TEMP 97.8
[2021-04-11 10:14] LABS: Glucose,Whole Blood 212 mg/dL (75-99)
[2021-04-11] MEDS ORDERED: ROPIVACAINE 5MG/ML 20ML VIAL ONE (10:42)
[2021-04-11] MEDS ORDERED: TRIAMCINOLONE ACETONIDE 40 MG/ML 1 ML VIAL ONE (10:42)
--- NOTE | 2021-04-11 10:54 | P.PCN ---
Date of Procedure: 04/11/21 Preoperative Diagnosis: Myofascial pain in the shoulder area bilaterally and in the neck area bilaterally Postoperative Diagnosis: Same as above Anesthesia: none Surgeon: Sofy Davis Pathology: none sent Condition: stable Disposition: PACU Description of Procedure: The patient was seen in the preop holding area consent was obtained. The trigger points were marked on the skin level in bilateral shoulders and cervical paravertebral musculature bilaterally. The targeted muscles were trapezius muscles bilaterally and supraspinatus muscle bilaterally was brought into the procedure room and placed in the upright position skin was prepped with ChloraPrep then I used 25-gauge 1-1/2 inch needle to go through the skin into each muscle of the mentioned above and injected 1 mL of ropivacaine 0.5% Kenalog. The total dose of Kenalog used was 20 mg only due to a history of diabetes. Total of 12 injections were done. Patient tolerated procedure well.
[2021-04-11 10:57] VITALS: RESP 16
[2021-04-11 11:16] VITALS: BP 131/72; PULSE 80
== END 2021-04-11 11:22 | disposition home or self-care (01) ==
LOC: ORPAIN 09:43
PROVIDERS: ATTEND Anesthesiology
DX: M79.18 Myalgia, other site (principal); M25.512 Pain in left shoulder; M25.511 Pain in right shoulder
CPT/HCPCS: 20553; J3301; J2795

== ENCOUNTER 2021-08-22 11:30 | Emergency (ER) | payer OTHER, BC ==
[2021-08-22 11:38] VITALS: BP 158/90; TEMP 98
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
[2021-08-22 14:07] VITALS: PULSE 78; RESP 18
== END 2021-08-22 14:07 | disposition home or self-care (01) ==
LOC: EC 11:30
DX: S63.602A Unspecified sprain of left thumb, initial encounter (principal); Z79.4 Long term (current) use of insulin; Z79.811 Long term (current) use of aromatase inhibitors; Z79.82 Long term (current) use of aspirin; Z79.83 Long term (current) use of bisphosphonates; Z79.84 Long term (current) use of oral hypoglycemic drugs; E11.9 Type 2 diabetes mellitus without complications; Z87.891 Personal history of nicotine dependence; V89.2XXA Person injured in unspecified motor-vehicle accident, traffic, initial encounter
CPT/HCPCS: 99284

== ENCOUNTER → 2022-03-17 | Outpatient (CLI) | payer OTHER, BC ==
--- NOTE | 2022-03-17 16:52 | MR ---
EXAMINATION TYPE: MR hand LT wo con DATE OF EXAM: 03/17/2022 COMPARISON: None HISTORY: Left thumb ucl tear, pain, swelling, limited movement Multiplanar multiecho imaging of the left hand with no contrast. There is some narrowing and mild spurring at the first carpometacarpal joint. There are similar bueno e at the first MP joint. No evidence of metacarpal fracture. The flexor tendon of the thumb appears i ntact. There is some thinning of the ulnar collateral ligament at the first MP joint. There is likely a full-thickness tear of the ligament near the attachment on the recent the proximal phalanx. No gonzález dence of any significant fluid. No evidence of soft tissue mass. Bones of the digits appear intact. No subluxation. There is some narrowing and spurring at the MP antony nts of all of the fingers. There are small subchondral cystic changes. IMPRESSION: There is some thinning of the ulnar collateral ligament at the first MP joint with likely full-thickn ess tear near the attachment on the base of the proximal phalanx. Erosions at the MP joints without significant spur formation could relate to inflammatory arthritis. No evidence of tendon tear..
== END | disposition home or self-care (01) ==
LOC: RADMRIMAIN 10:28
PROVIDERS: ATTEND Orthopaedic Surgery Hand Surgery
DX: M79.645 Pain in left finger(s) (principal)

== ENCOUNTER → 2022-07-25 | Outpatient (CLI) | payer BC ==
--- NOTE | 2022-07-26 05:05 | MR ---
EXAMINATION TYPE: MR hip RT wo con DATE OF EXAM: 07/25/2022 COMPARISON: None HISTORY: Right hip pain for 7 months. Multiplanar multiecho imaging of the pelvis and right hip performed with no contrast. The proximal femur show normal signal pattern. No edema. The acetabula are intact. Bladder distends s moothly. No sign of hip joint effusion. No evidence of avascular necrosis. No evidence of a pelvic ma ss. No free fluid in the pelvis. These sacroiliac joints appear intact. There is some increased fluid signal at the lateral aspect of the greater trochanter of the right femur. There is similar mild inc reased signal on the left side. IMPRESSION: There is evidence of mild trochanteric bursitis of the right and left hip.
== END | disposition home or self-care (01) ==
LOC: RADMRIMAIN 19:10
PROVIDERS: ATTEND Orthopaedic Surgery
DX: M70.62 Trochanteric bursitis, left hip (principal); M70.61 Trochanteric bursitis, right hip; M25.551 Pain in right hip

== ENCOUNTER → 2023-05-07 | Outpatient (CLI) | payer MEDICARE, BC ==
--- NOTE | 2023-05-07 11:54 | CT ---
EXAMINATION TYPE: CT brain rita watts DATE OF EXAM: 05/07/2023 COMPARISON: None HISTORY: fall CT DLP: 1857.5 mGycm Automated exposure control for dose reduction was used. TECHNIQUE: CT scan of the head and cervical spine are performed without contrast. FINDINGS Head CT: Ventricles, basal cisterns and sulci over the convexities within normal limits and there is no mass e ffect or shift of midline structures. No abnormal density is seen throughout the brain parenchyma and there is no acute intra or extra-axia l hemorrhage. The posterior fossa including the brainstem, fourth ventricle and cerebellar pontine angles appear gr ossly normal. Intraorbital contents appear normal and symmetric. There are mild chronic inflammatory changes in the maxillary sinuses with mucous retention cysts or p olyps. The calvarium is intact. CT cervical spine: The craniovertebral junction relationships and prevertebral soft tissues are normal. The cervical vertebral segments are normal in height and alignment and there is no fracture or sublux ation. There is moderate to marked degenerative disc disease C6-7 level where there is moderate to marked di sc space narrowing and spondylosis. The remaining intervertebral discs the cervical region are within normal limits. There is multilevel facet degeneration. There is no bony encroachment of the cervical canal or neural foramina. Impression 1. No acute bleed or mass effect intracranially. 2. Calvarium intact. 3. Degenerative changes in lower cervical spine but no evidence of acute trauma to the cervical spine .
== END | disposition home or self-care (01) ==
LOC: RADCTMAIN 11:11
PROVIDERS: ATTEND Family Medicine
DX: S09.90XA Unspecified injury of head, initial encounter (principal); M47.812 Spondylosis without myelopathy or radiculopathy, cervical region; M50.323 Other cervical disc degeneration at C6-C7 level; M48.02 Spinal stenosis, cervical region; X58.XXXA Exposure to other specified factors, initial encounter
CPT/HCPCS: 70450; 72125

== ENCOUNTER 2023-09-29 23:15 | Emergency (ER) | payer MEDICARE, BC ==
[2023-09-29 23:26] VITALS: TEMP 98.4
[2023-09-29 23:45] LABS: Basophils # (A) 0.1 k/uL (0-0.2); Basophils % (A) 1 %; Eosinophils # (A) 0.6 k/uL (0-0.7); Eosinophils % (A) 5 %; HCT 42.1 % (39.0-53.0); HGB 14.6 gm/dL (13.0-17.5); Lymphocytes # (A) 4.1 k/uL (1.0-4.8); Lymphocytes % (A) 37 %; MCH 31.7 pg (25.0-35.0); MCHC 34.7 g/dL (31.0-37.0); MCV 91.4 fL (80.0-100.0); Mean Platelet Volume 7.5; Monocytes # (A) 0.4 k/uL (0-1.0); Monocytes % (A) 4 %; Neutrophils # (A) 5.9 k/uL (1.3-7.7); Neutrophils % (A) 52 %; Platelet Count 202 k/uL (150-450); RBC 4.61 m/uL (4.30-5.90); RDW 12.5 % (11.5-15.5); WBC 11.3 k/uL (3.8-10.6)
[2023-09-29 23:53] LABS: Partial Thromboplastin Time 22.6 sec (22.0-30.0)
--- NOTE | 2023-09-29 23:53 | ED ---
Weakness HPI - General Chief complaint: Fall Stated complaint: Fall Time Seen by Provider: 09/29/23 23:19 Source: patient Mode of arrival: EMS Limitations: no limitations - History of Present Illness Initial comments: Patient is a 63-year-old man who is brought by ambulance to have evaluation of generalized weakness. Patient states that he has been feeling weak all day. He had a few drinks and then tonight he states that he fell in the grass in his yard and then was just too weak to get up. He denies focal weakness. He states that he has had this problem before notably he was at [employer] game and fell there and then was too weak to get up and was seen at receiving hospital. Patient has not noted fever or chills. No focal weakness. He does have some chronic paresthesias of the extremities that he states he was told was neuropathy. No chest pain, dyspnea, diaphoresis, nausea or vomiting. No difficulty with speech or swallowing. No change in vision MD Complaint: generalized weakness, tingling, lack of energy, difficulty walking Onset/Timin -: days(s) Location: generalized Severity: moderate Quality: tingling Consistency: constant Improves with: none Worsens with: none Associated Symptoms: denies other symptoms - Related Data Home Medications Medication Instructions Recorded Confirmed ALPRAZolam [Xanax] 0.25 mg PO TID PRN 02/22/20 08/22/21 Albuterol Inhaler [Ventolin Hfa 2 puff INHALATION RT-QID PRN 02/22/20 08/22/21 Inhaler] Dulaglutide [Trulicity] 1.5 mg SQ WEEKLY 02/22/20 08/22/21 Zolpidem [Ambien] 10 mg PO HS PRN 02/22/20 08/22/21 lisinopriL [Prinivil] 10 mg PO QAM 02/22/20 08/22/21 glipiZIDE XL [Glucotrol XL] 5 mg PO QAM 04/27/20 08/22/21 metFORMIN HCL [Glucophage] 500 mg PO DAILY 04/27/20 08/22/21 Rosuvastatin [Crestor] 20 mg PO DAILY 08/22/21 08/22/21 Previous Rx's Medication Instructions Recorded Nitroglycerin Sl Tabs [Nitrostat] 0.4 mg SUBLINGUAL Q5M PRN #20 tab 04/28/20 Allergies Allergy/AdvReac Type Severity Reaction Status Date / Time No Known Allergies Allergy Verified 08/22/21 13:58 Review of Systems ROS Statement: Those systems with pertinent positive or pertinent negative responses have been documented in the HPI. ROS Other: All systems not noted in ROS Statement are negative. Constitutional: Reports: weakness. Denies: fever, chills Eyes: Denies: vision change ENT: Denies: congestion Respiratory: Denies: cough, dyspnea Cardiovascular: Denies: chest pain, palpitations, dyspnea on exertion, edema, syncope Gastrointestinal: Denies: abdominal pain, vomiting, diarrhea Genitourinary: Denies: dysuria, hematuria Musculoskeletal: Denies: back pain Skin: Denies: rash Neurological: Reports: paresthesias. Denies: headache, weakness, numbness Past Medical History Past Medical History: Diabetes Mellitus Additional Past Medical History / Comment(s): Hx Skin Cancer on shoulder History of Any Multi-Drug Resistant Organisms: None Reported Past Surgical History: Heart Catheterization With Stent, Orthopedic Surgery Additional Past Surgical History / Comment(s): Sleep apnea surgery, right shoulder surgery. 1 stent to LAD and 1 stent to RCA on 02/23/2020, Past Anesthesia/Blood Transfusion Reactions: No Reported Reaction Date of Last Stent Placement:: 02/23/2020 Past Psychological History: Anxiety Smoking Status: Former smoker Past Alcohol Use History: None Reported Past Drug Use History: None Reported - Past Family History Mother Family Medical History: No Reported History General Exam Limitations: no limitations General appearance: alert, in no apparent distress Head exam: Present: atraumatic, normocephalic Eye exam: Present: normal appearance. Absent: scleral icterus, conjunctival injection ENT exam: Present: mucous membranes dry Neck exam: Present: normal inspection Respiratory exam: Present: normal lung sounds bilaterally. Absent: respiratory distress, wheezes, rales, rhonchi, stridor, accessory muscle use Cardiovascular Exam: Present: regular rate, normal rhythm, normal heart sounds. Absent: systolic murmur, diastolic murmur, rubs, gallop GI/Abdominal exam: Present: soft. Absent: distended, tenderness, guarding, rebound, rigid, mass Extremities exam: Present: normal inspection, normal capillary refill. Absent: pedal edema, calf tenderness Back exam: Present: normal inspection. Absent: CVA tenderness (R), CVA tenderness (L) Neurological exam: Present: alert, oriented X3, CN II-XII intact. Absent: motor sensory deficit Skin exam: Present: warm, dry, intact, normal color. Absent: rash Course Vital Signs 09/29/23 09/30/23 23:18 00:59 Temperature 98.4 F Pulse Rate 80 88 Respiratory 18 16 Rate Blood Pressure 144/89 134/74 O2 Sat by Pulse 97 98 Oximetry EKG Findings - EKG Results: EKG: interpreted by ERMD, sinus rhythm (Rate 82 bpm), normal axis, normal QRS, normal ST/T Medical Decision Making - Medical Decision Making The patient had chest x-ray which I interpreted as negative for acute infiltrate, congestive heart failure, pneumothorax. Was pt. sent in by a medical professional or institution (DINORAH Bronson, SENIOR BACKUP ADMINISTRATOR, urgent care, hospital, or shelter...) When possible be specific @ -[No] Did you speak to anyone other than the patient for history (EMS, parent, family, police, friend...)? What history was obtained from this source @ -[No] Did you review nursing and triage notes (agree or disagree)? Why? @ -[I reviewed and agree with nursing and triage notes] Were old charts reviewed (outside hosp., previous admission, EMS record, old EKG, old radiological studies, urgent care reports/EKG's, shelter records)? Report findings @ -[No old charts were reviewed] Differential Diagnosis (chest pain, altered mental status, abdominal pain women, abdominal pain men, vaginal bleeding, weakness, fever, dyspnea, syncope, headache, dizziness, GI bleed, back pain, seizure, CVA, palpatations, mental health, musculoskeletal)? @ -[Differential Weakness: Hypoglycemia, shock, sepsis, hyponatremia, anemia, infection, VT, ETOH, adverse medicine reaction, overdose, stroke, this is not meant to be an all-inclusive list. EKG interpreted by me (3pts min.). @ -[I interpreted as above] X-rays interpreted by me (1pt min.). @ -[I interpreted as above CT interpreted by me (1pt min.). @ -[None done] U/S interpreted by me (1pt. min.). @ -[None done] What testing was considered but not performed or refused? (CT, X-rays, U/S, labs)? Why? @ -[None] What meds were considered but not given or refused? Why? @ -[None] Did you discuss the management of the patient with other professionals (professionals i.e. , PA, SENIOR BACKUP ADMINISTRATOR, lab, RT, psych nurse, health and social care teacher, route agent, teacher, credit risk review officer, registered nurse hh case manager)? Give summary @ -[No] Was smoking cessation discussed for >3mins.? @ -[No] Was critical care preformed (if so, how long)? @ -[No] Were there social determinants of health that impacted care today? How? (Homelessness, low income, unemployed, alcoholism, drug addiction, transportation, low edu. Level, literacy, decrease access to med. care, alf, rehab)? @ -[No] Was there de-escalation of care discussed even if they declined (Discuss DNR or withdrawal of care, Hospice)? DNR status @ -[No] What co-morbidities impacted this encounter? (DM, HTN, Smoking, COPD, CAD, Cancer, CVA, ARF, Chemo, Hep., AIDS, mental health diagnosis, sleep apnea, morbid obesity)? @ -[None] Was patient admitted / discharged? Hospital course, mention meds given and route, prescriptions, significant lab abnormalities, going to OR and other pertinent info. @ -[Patient is 63-year-old man here to have evaluation after he was experiencing generalized weakness and fell. He was then too weak to get up. There is no focal weakness on the exam and the patient is feeling better after evaluation. He would like to go home he does not want to be admitted in the hospital. I discussed tapering off of alcohol use. Discussed return parameters. He will follow with physician Undiagnosed new problem with uncertain prognosis? @ -[No] Drug Therapy requiring intensive monitoring for toxicity (Heparin, Nitro, Insulin, Cardizem)? @ -[No] Were any procedures done? @ -[No] Diagnosis/symptom? @ -[Acute generalized weakness Acute alcohol intoxication Minor head trauma Acute, or Chronic, or Acute on Chronic? @ -[Acute Uncomplicated (without systemic symptoms) or Complicated (systemic symptoms)? @ -[Uncomplicated Side effects of treatment? @ -[No] Exacerbation, Progression, or Severe Exacerbation? @ -[No] Poses a threat to life or bodily function? How? (Chest pain, USA, VT, pneumonia, PE, COPD, DKA, ARF, appy, cholecystitis, CVA, Diverticulitis, Homicidal, Suicidal, threat to staff... and all critical care pts) @ -[No] - Lab Data Result diagrams: 09/29/23 23:36 09/29/23 23:36 Lab Results 09/29/23 09/29/23 09/29/23 Range/Units 23:36 23:36 23:36 WBC 11.3 H (3.8-10.6) k/uL RBC 4.61 (4.30-5.90) m/uL Hgb 14.6 (13.0-17.5) gm/dL Hct 42.1 (39.0-53.0) % MCV 91.4 (80.0-100.0) fL MCH 31.7 (25.0-35.0) pg MCHC 34.7 (31.0-37.0) g/dL RDW 12.5 (11.5-15.5) % Plt Count 202 (150-450) k/uL MPV 7.5 Neutrophils % 52 % Lymphocytes % 37 % Monocytes % 4 % Eosinophils % 5 % Basophils % 1 % Neutrophils # 5.9 (1.3-7.7) k/uL Lymphocytes # 4.1 (1.0-4.8) k/uL Monocytes # 0.4 (0-1.0) k/uL Eosinophils # 0.6 (0-0.7) k/uL Basophils # 0.1 (0-0.2) k/uL PT 11.0 (10.0-12.5) sec INR 1.0 (<1.2) APTT 22.6 (22.0-30.0) sec Sodium 142 (137-145) mmol/L Potassium 3.7 (3.5-5.1) mmol/L Chloride 107 (98-107) mmol/L Carbon Dioxide 22 (22-30) mmol/L Anion Gap 13 mmol/L BUN 5 L (9-20) mg/dL Creatinine 0.56 L (0.66-1.25) mg/dL Est GFR (CKD-EPI)AfAm >90 (>60 ml/min/1.73 sqM) Est GFR (CKD-EPI)NonAf >90 (>60 ml/min/1.73 sqM) Glucose 143 H (74-99) mg/dL Lactic Ac Sepsis Rflx Plasma Lactic Acid Jose (0.7-2.0) mmol/L Calcium 9.2 (8.4-10.2) mg/dL Magnesium 1.8 (1.6-2.3) mg/dL Total Bilirubin 0.5 (0.2-1.3) mg/dL AST 60 H (17-59) U/L ALT 33 (4-49) U/L Alkaline Phosphatase 73 (38-126) U/L Troponin I (0.000-0.034) ng/mL Total Protein 7.5 (6.3-8.2) g/dL Albumin 4.3 (3.5-5.0) g/dL Serum Alcohol 220 H* mg/dL 09/29/23 09/29/23 09/30/23 Range/Units 23:36 23:36 00:05 WBC (3.8-10.6) k/uL RBC (4.30-5.90) m/uL Hgb (13.0-17.5) gm/dL Hct (39.0-53.0) % MCV (80.0-100.0) fL MCH (25.0-35.0) pg MCHC (31.0-37.0) g/dL RDW (11.5-15.5) % Plt Count (150-450) k/uL MPV Neutrophils % % Lymphocytes % % Monocytes % % Eosinophils % % Basophils % % Neutrophils # (1.3-7.7) k/uL Lymphocytes # (1.0-4.8) k/uL Monocytes # (0-1.0) k/uL Eosinophils # (0-0.7) k/uL Basophils # (0-0.2) k/uL PT (10.0-12.5) sec INR (<1.2) APTT (22.0-30.0) sec Sodium (137-145) mmol/L Potassium (3.5-5.1) mmol/L Chloride (98-107) mmol/L Carbon Dioxide (22-30) mmol/L Anion Gap mmol/L BUN (9-20) mg/dL Creatinine (0.66-1.25) mg/dL Est GFR (CKD-EPI)AfAm (>60 ml/min/1.73 sqM) Est GFR (CKD-EPI)NonAf (>60 ml/min/1.73 sqM) Glucose (74-99) mg/dL Lactic Ac Sepsis Rflx Y Plasma Lactic Acid Jose 3.0 H* (0.7-2.0) mmol/L Calcium (8.4-10.2) mg/dL Magnesium (1.6-2.3) mg/dL Total Bilirubin (0.2-1.3) mg/dL AST (17-59) U/L ALT (4-49) U/L Alkaline Phosphatase (38-126) U/L Troponin I <0.012 (0.000-0.034) ng/mL Total Protein (6.3-8.2) g/dL Albumin (3.5-5.0) g/dL Serum Alcohol mg/dL Disposition Clinical Impression: Weakness, Alcohol intoxication Disposition: HOME SELF-CARE Condition: Poor Instructions (If sedation given, give patient instructions): Fall Prevention (ED) Is patient prescribed a controlled substance at d/c from ED?: No Referrals: Alo Espinoza DO [Primary Care Provider] - 1-2 days Katelyn Shaffer MD [REFERRING] - 1-2 days
--- NOTE | 2023-09-29 23:56 | XR ---
EXAM: XR Chest, 1 View CLINICAL HISTORY: ITS.REASON XR Reason: weakness TECHNIQUE: Frontal view of the chest. COMPARISON: No relevant prior studies available. FINDINGS: Lungs: Unremarkable. No consolidation. Pleural space: Unremarkable. No pneumothorax. Heart: Unremarkable. No cardiomegaly. Mediastinum: Unremarkable. Normal mediastinal contour. Bones/joints: Unremarkable. No acute fracture. IMPRESSION: No consolidation.
[2023-09-30 00:04] LABS: ALT 33 U/L (4-49); AST 60 U/L (17-59); African American GFR (CKD) >90 (>60 ml/min/1.73 sqM); Albumin 4.3 g/dL (3.5-5.0); Alkaline Phosphatase 73 U/L (38-126); Anion Gap 13 mmol/L; Blood Urea Nitrogen 5 mg/dL (9-20); Calcium 9.2 mg/dL (8.4-10.2); Carbon Dioxide 22 mmol/L (22-30); Chloride 107 mmol/L (98-107); Glucose 143 mg/dL (74-99); Magnesium 1.8 mg/dL (1.6-2.3); Non-African American GFR(CKD) >90 (>60 ml/min/1.73 sqM); Potassium 3.7 mmol/L (3.5-5.1); Sodium 142 mmol/L (137-145); Total Bilirubin 0.5 mg/dL (0.2-1.3); Total Protein 7.5 g/dL (6.3-8.2)
[2023-09-30] MEDS: SODIUM CHLORIDE 0.9% 1,000 ML IV ONE (00:10)
[2023-09-30 00:25] LABS: Alcohol 220 mg/dL
[2023-09-30 01:07] VITALS: BP 134/74; PULSE 88; RESP 16
== END 2023-09-30 01:00 | disposition home or self-care (01) ==
LOC: EC 23:15
DX: R53.1 Weakness (principal); F10.129 Alcohol abuse with intoxication, unspecified; E11.9 Type 2 diabetes mellitus without complications; F41.9 Anxiety disorder, unspecified; G47.30 Sleep apnea, unspecified; Z79.84 Long term (current) use of oral hypoglycemic drugs; Z79.899 Other long term (current) drug therapy; Z87.891 Personal history of nicotine dependence; Z95.5 Presence of coronary angioplasty implant and graft; Y90.7 Blood alcohol level of 200-239 mg/100 ml
CPT/HCPCS: 36415 ×2; 93005; 80053; 83605; 83735; 84484; 85025; 85610; 85730; 71045; 99285; 96360; G0480; 80320

== ENCOUNTER → 2023-12-23 | Outpatient (CLI) | payer MEDICARE, BC ==
--- NOTE | 2023-12-23 15:42 | US ---
EXAMINATION TYPE: US extremity nonvasc mass RT DATE OF EXAM: 12/23/2023 COMPARISON: NONE CLINICAL INDICATION: Male, 63 years old with history of R22.41 LOCALIZED SWELLING, MASS AND LUMP, RIG HT LO; Patient feels mass within right anterior thigh x 8 months. No injury. TECHNIQUE: Scanned right anterior thigh. FINDINGS: No abnormalities seen by ultrasound at this time in patient's palpable area of concern. No organizing fluid collection or mass. IMPRESSION: No abnormalities identified on grayscale imaging.
== END | disposition home or self-care (01) ==
LOC: RADUSWWP 14:04
PROVIDERS: ATTEND Family Medicine
DX: R22.41 Localized swelling, mass and lump, right lower limb (principal)

== ENCOUNTER → 2024-09-21 | Outpatient (CLI) | payer MEDICARE ==
--- NOTE | 2024-09-21 14:36 | US ---
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 TECHNIQUE: Grayscale and color Doppler imaging of the thyroid gland. FINDINGS: GLAND SIZE: Right Lobe: 3.0 x 1.6 x 2.2 cm Overall Parenchyma: homogeneous Left Lobe: 3.3 x 1.8 x 1.9 cm Overall Parenchyma: homogeneous Isthmus Thickness: 0.5 cm NODULES- Limited thyroid visualization due to posterior location RIGHT: # of nodules measured on right: 0 LEFT: # of nodules measured on left: 0 ISTHMUS: # of nodules measured in the isthmus: 0 Bilateral neck scanned. Right lateral neck prominent lymph node with short axis - 0.6 cm and cortica l thickness- 2.7 mm. Right submandibular gland = 2.7 x 3.5 x 1.8 cm. Right parotid gland not well se en. Right neck area of concern of swelling scanned- limited visualization due to unable to penetrate IMPRESSION: 1. No thyroid nodules. 2. Nonenlarged lymph nodes noted in the neck. 3. No evidence for acute process. [facility], , 09/21/2024 2:33 PM
== END | disposition home or self-care (01) ==
LOC: RADUSWWP 13:19
PROVIDERS: ATTEND Family Medicine
DX: K11.1 Hypertrophy of salivary gland (principal)
CPT/HCPCS: 76536

== ENCOUNTER 2024-11-24 07:19 | Day surgery (SDC) | payer MEDICARE ==
[2024-11-23 11:23] VITALS: BMI 38.4
[2024-11-24 07:50] VITALS: TEMP 97.1
[2024-11-24] MEDS: IPRATROPIUM-ALBUTEROL 3 ML NEB INHALATION STA (07:56)
[2024-11-24 08:02] LABS: Glucose,Whole Blood 183 mg/dL (70-110)
[2024-11-24] MEDS: LACTATED RINGERS 1,000 ML IV SCH (08:04)
[2024-11-24] MEDS: IV FLUID CONTINUATION 1,000 ML IV ONE (08:05)
[2024-11-24] MEDS ORDERED: PROPOFOL 10 MG/ML 20 ML VIAL IV ONE (08:09)
[2024-11-24] MEDS ORDERED: LIDOCAINE 1% INJ 10MG/ML (20 ML MDV) ONE (08:09)
--- NOTE | 2024-11-24 08:28 | P.PCN ---
Date of Procedure: 11/24/24 Procedure(s) Performed: BRIEF HISTORY: Patient is a 64-year-old pleasant white male scheduled for an elective colonoscopy as a part of screening for colon cancer. PROCEDURE PERFORMED: Colonoscopy. PREOPERATIVE DIAGNOSIS: Screening for colon cancer. IV sedation per Anesthesia. PROCEDURE: After informed consent was obtained, the patient, was brought into the endoscopy unit. IV sedation was administered by Anesthesia under continuous monitoring. Digital rectal examination was normal. Initially the Olympus CF-160 flexible video colonoscope was then inserted in the rectum, gradually advanced into the cecum without any difficulty. Careful examination was performed as the scope was gradually being withdrawn. Ileocecal valve and the appendiceal orifice were visualized and appeared normal. Prep was excellent. Mucosa of the cecum, ascending colon, transverse colon, descending colon, sigmoid colon, and rectum appeared normal. Retroflexion was performed in the rectum and no lesions were seen. The patient tolerated the procedure well. IMPRESSION: Normal-appearing colon from rectum to cecum with no evidence of colorectal neoplasia. RECOMMENDATIONS: Findings of this examination were discussed with the patient as well as the family. He was advised to have repeat screening colonoscopy in 10 years..
[2024-11-24 08:56] VITALS: BP 131/72; PULSE 79; RESP 18
== END 2024-11-24 09:40 | disposition home or self-care (01) ==
LOC: ORWHC2ENDO 07:19
PROVIDERS: ATTEND Internal Medicine Gastroenterology
DX: Z12.11 Encounter for screening for malignant neoplasm of colon (principal)
CPT/HCPCS: J2003; J2704; G0121